=== PATIENT | male | born 1940 | race Caucasian/White ===

== ENCOUNTER → 2019-09-12 15:56 | Outpatient (CLI) | payer MEDICARE, BC, SELFPAY ==
[2019-09-12 18:10] LABS: AST(SGOT) 31 U/L (15-37); Alanine Aminotransfer ALT/SGPT 52 U/L (16-61); Albumin, Serum 3.8 g/dL (3.2-5.0); Alkaline Phosphatase 93 U/L (45-117); Bilirubin, Direct 0.18 mg/dL (0.00-0.30); CPK Total, Creatine Kinase 423 U/L (39-308); Ferritin 57 ng/mL (26-388); Globulin 3.7 g/dL (2.2-4.2); Magnesium 2.2 mg/dL (1.6-2.6); Protein, Total 7.5 g/dL (6.4-8.2)
== END ==
PROVIDERS: Family Medicine; Family Provider Family Medicine; PCP Family Medicine; Referring Provider Family Medicine; Visit Provider Family Medicine
DX: E78.5 Hyperlipidemia, unspecified (principal); R25.2 Cramp and spasm
CPT/HCPCS: 36415; 80076; 82550; 82728; 83735

== ENCOUNTER → 2019-09-27 08:27 | Outpatient (CLI) | payer MEDICARE, BC, SELFPAY ==
[2019-09-27 10:31] LABS: CPK Total, Creatine Kinase 311 U/L (39-308)
== END ==
PROVIDERS: Family Provider Family Medicine; PCP Family Medicine; Referring Provider Family Medicine; Visit Provider Family Medicine
DX: R74.8 Abnormal levels of other serum enzymes (principal)
CPT/HCPCS: 36415; 82550

== ENCOUNTER → 2019-11-13 09:52 | Outpatient (CLI) | payer MEDICARE, BC, SELFPAY ==
[2019-11-13 12:20] LABS: Absolute Lymphocyte Count 1.39 X10^3/uL (0.83-4.51); Absolute Neutrophil Count 4.5 X10^3/uL (2.0-7.7); Basophil# 0.03 X10^3/uL; Basophil% 0.5 % (0-1); Eosinophil# 0.06 X10^3/uL; Eosinophils% 0.9 % (0-5); Hematocrit 43.7 % (40-54); Hemoglobin 14.3 g/dL (13.0-16.5); Lymphocyte # 1.39 X10^3/ul (4.0); Lymphocyte % 21.5 % (19-41); Mean Corp Hgb Conc 32.7 g/dL (32-36); Mean Corpuscular Hgb 32.5 pg (27.0-32.0); Mean Corpuscular Volume 99.3 fL (80-94); Mean Platelet Vol. 9.4 fl (6.2-12.0); Monocyte# 0.49 X10^3/uL; Monocyte% 7.6 % (0-10); NRBC Flagged by Analyzer 0 % (0-5); Neutrophil # 4.49 X10^3/uL (2.7-7.7); Neutrophil % 69.2 % (47-70); Platelet Count 245 K/mm3 (150-450); RBC Distribution Width CV 12.9 % (11.6-14.6); RBC Distribution Width SD 47.3 fl (35.1-43.9); White Blood Count 6.5 K/mm3 (4.4-11.0)
[2019-11-13 12:39] LABS: ALB/GLOB Ratio 0.9 RATIO (0.9-2.4); AST(SGOT) 36 U/L (15-37); Alanine Aminotransfer ALT/SGPT 57 U/L (16-61); Albumin, Serum 3.7 g/dL (3.2-5.0); Alkaline Phosphatase 89 U/L (45-117); Anion Gap 6 (5-15); BUN 19 mg/dL (7-18); BUN/Creat Ratio 15.2 RATIO (10-20); Calcium,Total 9.2 mg/dL (8.5-10.1); Chloride 105 mmol/L (98-107); Cholesterol 248 mg/dL (200); Creatinine, Serum 1.25 mg/dL (0.70-1.30); EST Glomerular Filtration Rate 59 mL/min (>60); Est Glom Filt Rate - Afr Amer 72 mL/min (>60); Globulin 3.9 g/dL (2.2-4.2); Glucose 99 mg/dL (74-106); High Density Lipoprotein 44 mg/dL; Potassium 4.2 mmol/L (3.5-5.1); Protein, Total 7.6 g/dL (6.4-8.2); Sodium Level 138 mmol/L (136-145); T4 Free Direct 1.23 ng/dL (0.76-1.46); Thyroid Stim Hormone (TSH) 1.57 uIU/mL (0.358-3.74); Triglycerides 318 mg/dL; Uric Acid 6.5 mg/dL (3.5-7.2); Very Low Density Lipoprotein 64 mg/dL (5-40)
== END ==
PROVIDERS: Family Provider Family Medicine; PCP Family Medicine; Referring Provider Family Medicine; Visit Provider Family Medicine
DX: E78.5 Hyperlipidemia, unspecified (principal); E89.0 Postprocedural hypothyroidism; M10.9 Gout, unspecified; R07.9 Chest pain, unspecified
CPT/HCPCS: 36415; 80053; 80061; 84439; 84443; 84550; 85025

== ENCOUNTER → 2019-12-09 11:55 | Outpatient (CLI) | payer MEDICARE, BC, SELFPAY ==
[2019-12-09 14:29] LABS: Anion Gap 5 (5-15); BUN 18 mg/dL (7-18); BUN/Creat Ratio 15.5 RATIO (10-20); Calcium,Total 9.5 mg/dL (8.5-10.1); Chloride 105 mmol/L (98-107); Creatinine, Serum 1.16 mg/dL (0.70-1.30); EST Glomerular Filtration Rate 65 mL/min (>60); Est Glom Filt Rate - Afr Amer 78 mL/min (>60); Glucose 86 mg/dL (74-106); Potassium 3.9 mmol/L (3.5-5.1); Sodium Level 139 mmol/L (136-145)
== END ==
PROVIDERS: PCP Family Medicine; Referring Provider Family Medicine; Visit Provider Family Medicine
DX: R94.4 Abnormal results of kidney function studies (principal)
CPT/HCPCS: 36415; 80048

== ENCOUNTER → 2020-04-17 08:00 | Outpatient (CLI) | payer MEDICARE, BC, SELFPAY ==
[2020-04-17 10:08] LABS: Absolute Lymphocyte Count 1.42 X10^3/uL (0.83-4.51); Absolute Neutrophil Count 3.8 X10^3/uL (2.0-7.7); Basophil# 0.02 X10^3/uL; Basophil% 0.3 % (0-1); Eosinophil# 0.05 X10^3/uL; Eosinophils% 0.9 % (0-5); Lymphocyte # 1.42 X10^3/ul (4.0); Lymphocyte % 24.4 % (19-41); Mean Corp Hgb Conc 31.7 g/dL (32-36); Mean Corpuscular Hgb 32.3 pg (27.0-32.0); Mean Corpuscular Volume 101.7 fL (80-94); Mean Platelet Vol. 9.5 fl (6.2-12.0); Monocyte# 0.51 X10^3/uL; Monocyte% 8.8 % (0-10); NRBC Flagged by Analyzer 0 % (0-5); Neutrophil % 65.3 % (47-70); Platelet Count 184 K/mm3 (150-450); RBC Distribution Width CV 13.4 % (11.6-14.6); RBC Distribution Width SD 49.9 fl (35.1-43.9); Red Blood Count 4.03 M/mm3 (4.6-6.2); White Blood Count 5.8 K/mm3 (4.4-11.0)
[2020-04-17 10:42] LABS: AST(SGOT) 33 U/L (15-37); Alanine Aminotransfer ALT/SGPT 51 U/L (16-61); Albumin, Serum 3.7 g/dL (3.2-5.0); Alkaline Phosphatase 70 U/L (45-117); Anion Gap 7 (5-15); BUN 16 mg/dL (7-18); BUN/Creat Ratio 13.6 RATIO (10-20); Calcium,Total 9.1 mg/dL (8.5-10.1); Chloride 103 mmol/L (98-107); Cholesterol 163 mg/dL (200); Creatinine, Serum 1.18 mg/dL (0.70-1.30); EST Glomerular Filtration Rate 63 mL/min (>60); Est Glom Filt Rate - Afr Amer 77 mL/min (>60); Globulin 3.7 g/dL (2.2-4.2); Glucose 106 mg/dL (74-106); High Density Lipoprotein 43 mg/dL; Potassium 4.3 mmol/L (3.5-5.1); Protein, Total 7.4 g/dL (6.4-8.2); Sodium Level 140 mmol/L (136-145); T4 Free Direct 1.34 ng/dL (0.76-1.46); Triglycerides 143 mg/dL; Uric Acid 5.5 mg/dL (3.5-7.2); Very Low Density Lipoprotein 29 mg/dL (5-40)
[2020-04-21 04:58] LABS: Anti-Thyroglobulin AB < 1.0 IU/mL (0.0-0.9); Thyroglobulin, Serum Qt. < 0.1 ng/mL (1.4-29.2)
== END ==
PROVIDERS: PCP Family Medicine; Referring Provider Family Medicine; Visit Provider Family Medicine
DX: C73 Malignant neoplasm of thyroid gland (principal); E89.0 Postprocedural hypothyroidism; K21.9 Gastro-esophageal reflux disease without esophagitis; E78.5 Hyperlipidemia, unspecified; M10.9 Gout, unspecified
CPT/HCPCS: 80053; 80061; 84432; 84439; 84443; 84550; 85025; 86800

== ENCOUNTER → 2020-05-18 09:39 | Outpatient (CLI) | payer MEDICARE, BC, SELFPAY ==
--- NOTE | 2020-05-18 09:41 | NM_ITS ---
CLINICAL: 79-year-old male with history of early satiety. SEMI-SOLID PHASE 99m Tc SULFUR COLLOID GASTRIC EMPTYING STUDY COMPARISON: None available FINDINGS: The patient was administered 1.2 mCi of 99m Tc sulfur colloid mixed with oatmeal and consumed per os. Image acquisitions in the anterior-posterior projections for a total of 60 minutes. There is prompt visualization of the stomach. There is no gastroesophageal reflux identified. The T1/2 linear fit was calculated to be 30.27 minutes, (Normal: 12-56 minutes). NM/Gastric Emptying Study IMPRESSION: 1. NORMAL 99m Tc sulfur colloid semi-solid phase (oatmeal) gastric emptying imaging examination. A. There is normal and preserved semi-solid phase gastric emptying compared to normal controls. (John et al, J Nucl Med Tech 38: 186, 2010). Electronically Signed: Oscar Gallardo DO at 22:10 EDT Tel , Service support ,
== END ==
PROVIDERS: PCP Family Medicine; Referring Provider Family Medicine; Visit Provider Family Medicine
DX: R68.81 Early satiety (principal)
CPT/HCPCS: 78264; A9541

== ENCOUNTER → 2020-06-09 18:09 | Outpatient (CLI) | payer MEDICARE, BC, SELFPAY | PROVIDERS: PCP Family Medicine; Referring Provider Internal Medicine Gastroenterology; Visit Provider Internal Medicine Gastroenterology | DX: Z20.828 Contact with and (suspected) exposure to other viral communicable diseases (principal) | CPT/HCPCS: 87635; 94799; U0003 ==

== ENCOUNTER → 2020-08-12 09:50 | Outpatient (CLI) | payer MEDICARE, BC, SELFPAY ==
[2020-08-12 12:54] LABS: Vitamin B12 419 pg/mL (211-911)
[2020-08-12 13:03] LABS: AST(SGOT) 38 U/L (15-37); Alanine Aminotransfer ALT/SGPT 57 U/L (16-61); Albumin, Serum 3.6 g/dL (3.2-5.0); Alkaline Phosphatase 88 U/L (45-117); Anion Gap 7 (5-15); BUN 14 mg/dL (7-18); BUN/Creat Ratio 13.2 RATIO (10-20); Calcium,Total 9.2 mg/dL (8.5-10.1); Chloride 105 mmol/L (98-107); Cholesterol 139 mg/dL (200); Creatinine, Serum 1.06 mg/dL (0.70-1.30); EST Glomerular Filtration Rate 72 mL/min (>60); Est Glom Filt Rate - Afr Amer 87 mL/min (>60); Globulin 3.7 g/dL (2.2-4.2); Glucose 109 mg/dL (74-106); High Density Lipoprotein 46 mg/dL; Potassium 4.1 mmol/L (3.5-5.1); Protein, Total 7.3 g/dL (6.4-8.2); Sodium Level 139 mmol/L (136-145); Thyroid Stim Hormone (TSH) 3.55 uIU/mL (0.358-3.74); Triglycerides 219 mg/dL; Uric Acid 5.6 mg/dL (3.5-7.2); Very Low Density Lipoprotein 44 mg/dL (5-40)
[2020-08-18 18:24] LABS: Vitamin B1, Thiamine 139.8 nmol/L (66.5-200.0)
== END ==
PROVIDERS: PCP Family Medicine; Referring Provider Family Medicine; Visit Provider Family Medicine
DX: E78.5 Hyperlipidemia, unspecified (principal); E89.0 Postprocedural hypothyroidism; M10.9 Gout, unspecified; G62.9 Polyneuropathy, unspecified
CPT/HCPCS: 36415; 80053; 80061; 82607; 84425; 84439; 84443; 84550

== ENCOUNTER → 2021-02-01 07:07 | Outpatient (CLI) | payer MEDICARE, BC, SELFPAY ==
[2021-02-01 09:47] LABS: Absolute Lymphocyte Count 1.28 X10^3/uL (0.83-4.51); Absolute Neutrophil Count 3.6 X10^3/uL (2.0-7.7); Basophil# 0.02 X10^3/uL; Basophil% 0.4 % (0-1); Eosinophil# 0.07 X10^3/uL; Eosinophils% 1.3 % (0-5); Hematocrit 41.8 % (40-54); Hemoglobin 13.5 g/dL (13.0-16.5); Lymphocyte # 1.28 X10^3/ul (4.0); Lymphocyte % 23.5 % (19-41); Mean Corp Hgb Conc 32.3 g/dL (32-36); Mean Corpuscular Hgb 32.3 pg (27.0-32.0); Mean Platelet Vol. 9.4 fl (6.2-12.0); Monocyte# 0.43 X10^3/uL; Monocyte% 7.9 % (0-10); NRBC Flagged by Analyzer 0 % (0-5); Neutrophil # 3.62 X10^3/uL (2.7-7.7); Neutrophil % 66.5 % (47-70); Platelet Count 186 K/mm3 (150-450); RBC Distribution Width CV 13.2 % (11.6-14.6); RBC Distribution Width SD 48.4 fl (35.1-43.9); Red Blood Count 4.18 M/mm3 (4.6-6.2); White Blood Count 5.4 K/mm3 (4.4-11.0)
[2021-02-01 10:34] LABS: ALB/GLOB Ratio 1.3 RATIO (0.9-2.4); AST(SGOT) 45 U/L (15-37); Alanine Aminotransfer ALT/SGPT 73 U/L (16-61); Albumin, Serum 3.9 g/dL (3.2-5.0); Alkaline Phosphatase 67 U/L (45-117); Anion Gap 6 (5-15); BUN 16 mg/dL (7-18); BUN/Creat Ratio 15.4 RATIO (10-20); Calcium,Total 8.8 mg/dL (8.5-10.1); Chloride 104 mmol/L (98-107); Cholesterol 156 mg/dL (200); Creatinine, Serum 1.04 mg/dL (0.70-1.30); EST Glomerular Filtration Rate 73 mL/min (>60); Est Glom Filt Rate - Afr Amer 88 mL/min (>60); Globulin 3.1 g/dL (2.2-4.2); Glucose 94 mg/dL (74-106); High Density Lipoprotein 49 mg/dL; Potassium 4.2 mmol/L (3.5-5.1); Sodium Level 142 mmol/L (136-145); T4 Free Direct 1.13 ng/dL (0.76-1.46); Thyroid Stim Hormone (TSH) 2.88 uIU/mL (0.358-3.74); Triglycerides 156 mg/dL; Uric Acid 5.5 mg/dL (3.5-7.2); Very Low Density Lipoprotein 31 mg/dL (5-40)
== END ==
PROVIDERS: PCP Family Medicine; Referring Provider Family Medicine; Visit Provider Family Medicine
DX: E89.0 Postprocedural hypothyroidism (principal); E78.5 Hyperlipidemia, unspecified; M10.9 Gout, unspecified
CPT/HCPCS: 36415; 80053; 80061; 84439; 84443; 84550; 85025

== ENCOUNTER → 2021-02-03 09:58 | Outpatient (CLI) | payer MEDICARE, BC, SELFPAY ==
[2021-02-03 13:15] LABS: Hepatitis B Surface Antibody Non-Reactive; Hepatitis B Surface Antigen Non-Reactive (Nonreactive); Hepatitis C Antibody Non-Reactive (Nonreactive)
== END ==
PROVIDERS: PCP Family Medicine; Referring Provider Family Medicine; Visit Provider Family Medicine
DX: R79.89 Other specified abnormal findings of blood chemistry (principal)
CPT/HCPCS: 36415; 86706; 86803; 87340

== ENCOUNTER → 2021-03-04 08:46 | Outpatient (CLI) | payer MEDICARE, BC, SELFPAY ==
[2021-03-10 03:06] LABS: Alternaria alternata <0.10 kU/L (Class 0); Aspergillus fumigatus <0.10 kU/L (Class 0); Bahia Grass <0.10 kU/L (Class 0); Bermuda Grass <0.10 kU/L (Class 0); Bluegrass, Kentucky <0.10 kU/L (Class 0); Cat Hair/Dander, Standard <0.10 kU/L (Class 0); Cedar, Mountain <0.10 kU/L (Class 0); Cladosporium herbarum <0.10 kU/L (Class 0); Cockroach, American <0.10 kU/L (Class 0); D farinae Mite <0.10 kU/L (Class 0); D pteronyssinus <0.10 kU/L (Class 0); Dog Epithelia <0.10 kU/L (Class 0); Elm, American White <0.10 kU/L (Class 0); Hazelnut Tree <0.10 kU/L (Class 0); Hickory, White <0.10 kU/L (Class 0); Johnson Grass <0.10 kU/L (Class 0); Maple/Box Elder <0.10 kU/L (Class 0); Mucor racemosus <0.10 kU/L (Class 0); Mugwort <0.10 kU/L (Class 0); Mulberry, White <0.10 kU/L (Class 0); Oak, White <0.10 kU/L (Class 0); Penicillium chrysogen <0.10 kU/L (Class 0); Pigweed, Rough <0.10 kU/L (Class 0); Plantain, English <0.10 kU/L (Class 0); Ragweed, Short/Common <0.10 kU/L (Class 0); Sheep Sorrel(Dock) <0.10 kU/L (Class 0); Stemphylium herbarum <0.10 kU/L (Class 0); Sweet Gum <0.10 kU/L (Class 0); Sycamore, American <0.10 kU/L (Class 0)
[2021-03-10 12:48] LABS: Nettle <0.10 kU/L (Class 0)
== END ==
PROVIDERS: PCP Family Medicine; Referring Provider Family Medicine; Visit Provider Family Medicine
DX: J30.9 Allergic rhinitis, unspecified (principal)
CPT/HCPCS: 36415; 86003

== ENCOUNTER → 2021-03-10 08:42 | Outpatient (CLI) | payer MEDICARE, BC, SELFPAY ==
--- NOTE | 2021-03-10 08:48 | RAD_ITS ---
PROCEDURE: Sniff test. DATE OF EXAMINATION: 03/10/2021. INDICATION: Male, 80 years old. Shortness of breath. FLUOROSCOPY TIME (if supplied): (23 seconds) minutes/seconds. 2 images were obtained. RAD/Chest Sniff Test Fluoro Only IMPRESSION: Normal movement of the right and left hemidiaphragms. Electronically Signed: Mumtaz Julian MD at 10:00 EDT , Service support ,
--- NOTE | 2021-03-10 08:48 | RAD_ITS ---
STUDY: X-RAY CHEST REASON FOR EXAM: Male, 80 years old. DYSPNEA TECHNIQUE: PA and lateral views of the chest. COMPARISON: None. FINDINGS: Mild increased linear markings at the lung bases suggestive of a bibasilar linear scarring. Hyperinflation. There is no demonstrated pleural abnormality. Normal size heart. Normal mediastinum and ghazal. Normal visualized pulmonary arteries. There is atherosclerotic calcification of the aortic arch with tortuosity. There are degenerative changes of the visualized thoracic spine. Metallic anchors are seen overlying the left humeral head suggestive of prior rotator cuff surgery. Small hiatal hernia. Patient is status post cholecystectomy. RAD/Chest PA and Lateral IMPRESSION: Hyperinflation. Mild increased signal markings at the lung bases suggestive of linear scarring. Electronically Signed: Mumtaz Julian MD at 9:16 EDT , Service support ,
== END ==
PROVIDERS: PCP Family Medicine; Referring Provider Internal Medicine Pulmonary Disease; Visit Provider Internal Medicine Pulmonary Disease
DX: R06.00 Dyspnea, unspecified (principal)
CPT/HCPCS: 71046; 76000

== ENCOUNTER → 2021-05-04 09:42 | Outpatient (CLI) | payer MEDICARE, BC, SELFPAY ==
[2021-05-04 12:06] LABS: Absolute Lymphocyte Count 1.12 X10^3/uL (0.83-4.51); Absolute Neutrophil Count 3.2 X10^3/uL (2.0-7.7); Basophil# 0.01 X10^3/uL; Basophil% 0.2 % (0-1); Eosinophil# 0.12 X10^3/uL; Eosinophils% 2.5 % (0-5); Hematocrit 38.7 % (40-54); Hemoglobin 12.5 g/dL (13.0-16.5); Lymphocyte # 1.12 X10^3/ul (0.83-4.51); Lymphocyte % 23.3 % (19-41); Mean Corp Hgb Conc 32.3 g/dL (32-36); Mean Corpuscular Hgb 31.5 pg (27.0-32.0); Mean Corpuscular Volume 97.5 fL (80-94); Mean Platelet Vol. 9.9 fl (6.2-12.0); Monocyte# 0.35 X10^3/uL; Monocyte% 7.3 % (0-10); NRBC Flagged by Analyzer 0 % (0-5); Neutrophil # 3.19 X10^3/uL (2.7-7.7); Neutrophil % 66.3 % (47-70); Platelet Count 209 K/mm3 (150-450); RBC Distribution Width CV 13.5 % (11.6-14.6); RBC Distribution Width SD 48.2 fl (35.1-43.9); Red Blood Count 3.97 M/mm3 (4.6-6.2); White Blood Count 4.8 K/mm3 (4.4-11.0)
[2021-05-04 12:25] LABS: AST(SGOT) 64 U/L (15-37); Alanine Aminotransfer ALT/SGPT 70 U/L (16-61); Albumin, Serum 3.5 g/dL (3.2-5.0); Alkaline Phosphatase 70 U/L (45-117); Anion Gap 8 (5-15); BUN 22 mg/dL (7-18); BUN/Creat Ratio 23.1 RATIO (10-20); Chloride 108 mmol/L (98-107); Cholesterol 126 mg/dL (200); Creatinine, Serum 0.95 mg/dL (0.70-1.30); EST Glomerular Filtration Rate 81 mL/min (>60); Est Glom Filt Rate - Afr Amer 98 mL/min (>60); Globulin 3.6 g/dL (2.2-4.2); Glucose 126 mg/dL (74-106); High Density Lipoprotein 40 mg/dL; Potassium 3.7 mmol/L (3.5-5.1); Protein, Total 7.1 g/dL (6.4-8.2); Sodium Level 142 mmol/L (136-145); T4 Free Direct 1.21 ng/dL (0.76-1.46); Thyroid Stim Hormone (TSH) 2.08 uIU/mL (0.358-3.74); Triglycerides 117 mg/dL; Uric Acid 5.9 mg/dL (3.5-7.2); Very Low Density Lipoprotein 23 mg/dL (5-40)
[2021-05-04 14:23] LABS: Ferritin 87 ng/mL (26-388); Iron 80 ug/dL (65-175); Iron Binding Capacity,Total 291 ug/dL (250-450); PERCENT IRON SATURATION 27.5 % (15.0-55.0)
[2021-05-04 14:40] LABS: Vitamin B12 396 pg/mL (211-911)
== END ==
PROVIDERS: PCP Family Medicine
DX: C73 Malignant neoplasm of thyroid gland (principal); E89.0 Postprocedural hypothyroidism; D64.9 Anemia, unspecified; E78.5 Hyperlipidemia, unspecified
CPT/HCPCS: 36415; 80053; 80061; 82607; 82728; 83540; 83550; 84439; 84443; 84550; 85025

== ENCOUNTER 2021-05-29 15:08 | Emergency (ER) | payer MEDICARE, BC, SELFPAY ==
[2021-05-29 15:08] VITALS: BP 137/69; PULSE 87; RESP 16; TEMP 36.6; O2SAT 95; BMI 28.5
--- NOTE | 2021-05-29 15:24 | CT_ITS ---
STUDY: CT BRAIN WITHOUT CONTRAST REASON FOR EXAM: Male, 81 years old. Fall this morning, facial pain RADIATION DOSAGE (If Supplied By Facility): CTDIvol = ( 44.99 ) mGy, DLP = ( 846.73 ) mGycm TECHNIQUE: Transaxial CT imaging of the brain was performed without administration of intravenous contrast material. Individualized dose optimization techniques were used for this CT. COMPARISON: No relevant priors. FINDINGS: Normal soft tissue structures. Normal calvarium. Normal size ventricles and extra-axial spaces for the patient''s age. Normal white matter tracts of the cerebral hemispheres. Normal basal ganglia and thalami. Normal brainstem. Normal cerebellum. There is no intracranial hemorrhage. There are no findings of an acute ischemic infarction. There is mucoperiosteal inflammatory disease of the frontal sinuses consistent with severe chronic sinusitis. Operative changes of the anterior frontal sinuses. Operative changes of the bilateral orbital globes. CT/Brain/Head without Contrast IMPRESSION: 1. No acute intracranial hemorrhage or mass effect. Electronically Signed: Joel Lobo MD ([place]) at 15:58 EDT , Service support ,
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
--- NOTE | 2021-05-29 15:47 | RAD_ITS ---
STUDY: X-RAY - LEFT SHOULDER REASON FOR EXAM: Male, 81 years old. injury TECHNIQUE: 4 view(s) of the shoulder. COMPARISON: None. FINDINGS: There is mild degenerative arthrosis of the glenohumeral articulation. Normal acromioclavicular joint. Normal acromion. Normal humeral head and visualized proximal humerus. Status post rotator cuff repair with surgical anchors in the humeral head. The soft tissue structures are unremarkable. Normal visualized pulmonary apex. RAD/Shoulder min 2 Views IMPRESSION: No acute fracture or dislocation. Electronically Signed: Oscar Baumann MD at 16:43 EDT Tel , Service support ,
--- NOTE | 2021-05-29 15:47 | RAD_ITS ---
STUDY: X-RAY - PELVIS AND LEFT HIP REASON FOR EXAM: Male, 81 years old. hip pain TECHNIQUE: 3 views of the pelvis and hip. COMPARISON: None. FINDINGS: There is a non-specific bowel gas pattern. Normal visualized soft tissue structures. Excreted contrast in the urinary bladder Normal bilateral iliac wings, sacroiliac joints and visualized sacrum. Normal bilateral superior and inferior pubic rami. Normal pubic symphysis. Normal bilateral ischial tuberosities. Normal visualized femoral head. Normal acetabulum. Normal hip joint. RAD/HIP, UNI W/ Pelvis 2-3 Views IMPRESSION: No demonstrated fracture malalignment. Electronically Signed: Joel Lobo MD ([place]) at 16:23 EDT , Service support ,
--- NOTE | 2021-05-29 15:47 | RAD_ITS ---
EXAM: XR LEFT RIBS AND AP CHEST, 3 OR MORE VIEWS CLINICAL INDICATION: injury this morning, left rib pain TECHNIQUE: Frontal and oblique views of the left ribs and frontal view of the chest. This report was created using [employer] report DailyStrength technology. COMPARISON: None. FINDINGS: LUNGS AND PLEURAL SPACES: Unremarkable. No consolidation or edema. No pneumothorax. No effusion. HEART: Unremarkable. Cardiac silhouette not enlarged. Atherosclerosis of the thoracic arch. MEDIASTINUM: Central airways and mediastinal contour are unremarkable. BONES/JOINTS: Operative changes of the left humeral head. No evidence of displaced rib fractures. RAD/Ribs Uni Min 3V w/PA Chest IMPRESSION: Negative chest and left ribs series. Electronically Signed: Joel Lobo MD ([place]) at 16:24 EDT , Service support ,
== END 2021-05-29 17:01 | disposition home or self-care (01) ==
PROVIDERS: Emergency Provider Emergency Medicine; PCP Family Medicine
DX: S00.83XA Contusion of other part of head, initial encounter (principal); S00.33XA Contusion of nose, initial encounter; S40.012A Contusion of left shoulder, initial encounter; S80.212A Abrasion, left knee, initial encounter; S80.211A Abrasion, right knee, initial encounter; S60.519A Abrasion of unspecified hand, initial encounter; W19.XXXA Unspecified fall, initial encounter; Y93.9 Activity, unspecified; Y92.9 Unspecified place or not applicable; Y99.9 Unspecified external cause status
CPT/HCPCS: 70450; 71101; 73030; 73502; 99282; A4216

== ENCOUNTER → 2021-06-10 08:14 | Outpatient (CLI) | payer MEDICARE, BC, SELFPAY ==
[2021-05-29 15:08] VITALS: BMI 28.5
--- NOTE | 2021-06-10 08:16 | RAD_ITS ---
STUDY: X-RAY - ESOPHAGUS (BARIUM SWALLOW) WITH FLUOROSCOPY REASON FOR EXAM: Male, 81 years old. DYSPHAGIA TECHNIQUE: 21 view(s) of the esophagus were obtained following swallowing of barium. FLUOROSCOPY TIME (if supplied): (36 seconds) minutes/seconds COMPARISON: None. FINDINGS: There is no demonstrated esophageal foreign body. Tertiary contractions of the mid and distal esophagus. Normal gastroesophageal junction, without a demonstrated hiatal hernia. The patient ingested a 12 mm tablet of barium. The tablet is trapped at the gastroesophageal junction. Normal visualized aortic arch and descending thoracic aorta. Normal visualized pulmonary parenchyma. There are diffuse degenerative changes of the visualized thoracic spine. RAD/Esophagus Single Contrast IMPRESSION: Tertiary contractions of the mid and distal portions of the esophagus. The patient ingested a 12 mm tablet of barium. The tablet is trapped at the gastroesophageal junction. Electronically Signed: Mumtaz Julian MD at 9:30 EDT , Service support ,
== END ==
PROVIDERS: PCP Family Medicine; Referring Provider Family Medicine; Visit Provider Family Medicine
DX: R13.10 Dysphagia, unspecified (principal)
CPT/HCPCS: 74220

== ENCOUNTER → 2021-07-14 14:04 | Outpatient (CLI) | payer MEDICARE, BC, SELFPAY ==
[2021-07-14 15:04] LABS: Absolute Lymphocyte Count 1.54 X10^3/uL (0.83-4.51); Absolute Neutrophil Count 4.9 X10^3/uL (2.0-7.7); Basophil# 0.02 X10^3/uL; Basophil% 0.3 % (0-1); Eosinophil# 0.08 X10^3/uL; Eosinophils% 1.1 % (0-5); Hematocrit 39.5 % (40-54); Hemoglobin 12.9 g/dL (13.0-16.5); Lymphocyte # 1.54 X10^3/ul (0.83-4.51); Lymphocyte % 21.6 % (19-41); Mean Corp Hgb Conc 32.7 g/dL (32-36); Mean Corpuscular Hgb 32.1 pg (27.0-32.0); Mean Corpuscular Volume 98.3 fL (80-94); Mean Platelet Vol. 9.8 fl (6.2-12.0); Monocyte# 0.61 X10^3/uL; Monocyte% 8.6 % (0-10); NRBC Flagged by Analyzer 0 % (0-5); Neutrophil # 4.85 X10^3/uL (2.7-7.7); Platelet Count 205 K/mm3 (150-450); RBC Distribution Width CV 13.4 % (11.6-14.6); RBC Distribution Width SD 49.1 fl (35.1-43.9); Red Blood Count 4.02 M/mm3 (4.6-6.2); White Blood Count 7.1 K/mm3 (4.4-11.0)
[2021-07-14 15:44] LABS: ALB/GLOB Ratio 0.8 RATIO (0.9-2.4); AST(SGOT) 27 U/L (15-37); Alanine Aminotransfer ALT/SGPT 40 U/L (16-61); Albumin, Serum 3.4 g/dL (3.2-5.0); Alkaline Phosphatase 81 U/L (45-117); Anion Gap 6 (5-15); BUN 13 mg/dL (7-18); BUN/Creat Ratio 13.1 RATIO (10-20); Calcium,Total 9.6 mg/dL (8.5-10.1); Chloride 105 mmol/L (98-107); Cholesterol 129 mg/dL (200); Creatinine, Serum 0.99 mg/dL (0.70-1.30); EST Glomerular Filtration Rate 77 mL/min (>60); Est Glom Filt Rate - Afr Amer 93 mL/min (>60); Globulin 4.1 g/dL (2.2-4.2); Glucose 118 mg/dL (74-106); High Density Lipoprotein 39 mg/dL; Potassium 3.9 mmol/L (3.5-5.1); Protein, Total 7.5 g/dL (6.4-8.2); Sodium Level 139 mmol/L (136-145); Triglycerides 181 mg/dL; Uric Acid 5.1 mg/dL (3.5-7.2); Very Low Density Lipoprotein 36 mg/dL (5-40)
[2021-07-14 16:05] LABS: Vitamin D,25 Hydroxy 51.7 ng/mL
== END ==
PROVIDERS: PCP Family Medicine; Referring Provider Family Medicine; Visit Provider Family Medicine
DX: R35.0 Frequency of micturition (principal); R73.09 Other abnormal glucose; E78.5 Hyperlipidemia, unspecified; M10.9 Gout, unspecified; E55.9 Vitamin D deficiency, unspecified
CPT/HCPCS: 36415; 80053; 80061; 82306; 83036; 84550; 85025; 87086; 87088

== ENCOUNTER → 2021-07-22 11:29 | Outpatient (CLI) | payer MEDICARE, BC, SELFPAY ==
--- NOTE | 2021-07-22 11:31 | US_ITS ---
STUDY: ULTRASOUND - URINARY BLADDER REASON FOR EXAM: Male, 81 years old. Pelvic pain and fullness TECHNIQUE: Ultrasound evaluation of the urinary bladder was performed with real-time and static york-scale imaging. COMPARISON: None. FINDINGS: There is no right UVJ calculus. There is a visualized right ureteral jet. The distended volume of the urinary bladder is 105 ml. The empty volume of the urinary bladder is 24 ml. The bladder wall is within normal limits. The bladder wall measures 3.7. There is no demonstrated bladder wall mass lesion. There are no demonstrated bladder calculi. 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
== END ==
PROVIDERS: PCP Family Medicine; Referring Provider Family Medicine; Visit Provider Family Medicine
DX: R33.9 Retention of urine, unspecified (principal)
CPT/HCPCS: 51798

== ENCOUNTER → 2021-08-26 09:45 | Outpatient (CLI) | payer MEDICARE, BC, SELFPAY ==
--- NOTE | 2021-08-26 09:48 | ECHOD_ITS ---
Version 2 Reason For Study: PHTN Procedure This was a 2D Doppler, Color Flow transthoracic echocardiogram. Exam performed in department. Left Ventricle Normal LV size. Left ventricular systolic function is normal. The estimated ejection fraction is 60 %. Stage 1 diastolic dysfunction. No regional wall motion abnormalities noted. Right Ventricle Normal RV size. Normal systolic function. Atria Normal left atrium. Normal right atrium. Mitral Valve Normal mitral valve. Tricuspid Valve Normal tricuspid valve. Mild tricuspid valve insufficiency. Pulmonary artery systolic pressure is 25 mmHg. Normal pulmonary artery pressure. Aortic Valve Normal aortic valve. Trisinus/trileaflet aortic valve. Pulmonic Valve Normal pulmonic valve. Great Vessels Normal aortic root. The pulmonary artery is normal size. Normal inferior vena cava. Pericardium/Pleural No pericardial effusion. MMode/2D Measurements & Calculations LVIDd: 4.7 cm IVSd: 1.0 cm Ao root diam: 3.4 cm LVIDs: 2.6 cm LVPWd: 1.1 cm RVDd: 3.6 cm FS: 45.1 % LAV(MOD-bp): 54.4 ml LA A4 area: 18.2 cm2 LA dimension(2D): 3.8 cm LAV(MOD-bp) Indexed: 24.5 ml/m2 LAV(MOD-sp2): 55.9 ml LAV(MOD-sp4): 49.0 ml RA A4 area: 17.2 cm2 Time Measurements MV dec time: 0.25 sec Doppler Measurements & Calculations MV E max ravinder: 84.9 cm/sec Lat Peak E' Ravinder: 7.6 cm/sec Med Peak E' Ravinder: 8.6 cm/sec MV A max ravinder: 98.6 cm/sec E/E' lat: 11.2 E/E' med: 9.9 MV E/A: 0.86 Ao V2 max: 155.1 cm/sec LV V1 max: 135.6 cm/sec PA V2 max: 93.9 cm/sec Ao max P.6 mmHg LV V1 max P.4 mmHg TR max ravinder: 232.0 cm/sec TR max P.5 mmHg ECHO/Echo Complete Interpretation Summary Normal LV size. Left ventricular systolic function is normal. The estimated ejection fraction is 60 %. Stage 1 diastolic dysfunction. Pulmonary artery systolic pressure is 25 mmHg. Normal pulmonary artery pressure. Ordering Physician: Marcellus Mike Referring Physician: Chriss Knutson Performed By: Ayana Salazar, [place], RVT
== END ==
PROVIDERS: PCP Family Medicine; Referring Provider Internal Medicine Pulmonary Disease; Visit Provider Internal Medicine Pulmonary Disease
DX: I27.20 Pulmonary hypertension, unspecified (principal)
CPT/HCPCS: 93306

== ENCOUNTER 2021-12-01 12:08 | Outpatient (CLI) | payer MEDICARE, BC, SELFPAY ==
[2021-12-01 16:29] LABS: Vitamin B12 395 pg/mL (211-911)
[2021-12-15 18:08] LABS: VITAMIN B6 15.6 ug/L (5.3-46.7)
== END 2021-12-01 23:59 | disposition short-term general hospital (02) ==
LOC: MFPLAB 12:13
PROVIDERS: PCP Family Medicine; Referring Provider Family Medicine; Visit Provider Family Medicine
DX: G62.9 Polyneuropathy, unspecified (principal)
CPT/HCPCS: 36415; 82607; 84207; 84425

== ENCOUNTER 2022-02-15 08:28 | Outpatient (CLI) | payer MEDICARE, BC, SELFPAY ==
[2022-02-15 09:56] LABS: Absolute Lymphocyte Count 1.49 X10^3/uL (0.83-4.51); Absolute Neutrophil Count 3.9 X10^3/uL (2.0-7.7); Basophil# 0.02 X10^3/uL; Basophil% 0.3 % (0-1); Eosinophils% 1.7 % (0-5); Hematocrit 40.4 % (40-54); Hemoglobin 13.6 g/dL (13.0-16.5); Lymphocyte # 1.49 X10^3/ul (0.83-4.51); Mean Corp Hgb Conc 33.7 g/dL (32-36); Mean Corpuscular Hgb 32.5 pg (27.0-32.0); Mean Corpuscular Volume 96.7 fL (80-94); Mean Platelet Vol. 9.1 fl (6.2-12.0); Monocyte# 0.48 X10^3/uL; Monocyte% 8.1 % (0-10); NRBC Flagged by Analyzer 0 % (0-5); Neutrophil # 3.85 X10^3/uL (2.7-7.7); Neutrophil % 64.6 % (47-70); Platelet Count 188 K/mm3 (150-450); RBC Distribution Width CV 13.4 % (11.6-14.6); RBC Distribution Width SD 48.1 fl (35.1-43.9); Red Blood Count 4.18 M/mm3 (4.6-6.2)
[2022-02-15 10:10] LABS: Vitamin D,25 Hydroxy 46.3 ng/mL
[2022-02-15 10:20] LABS: ALB/GLOB Ratio 1.1 RATIO (0.9-2.4); AST(SGOT) 44 U/L (15-37); Alanine Aminotransfer ALT/SGPT 64 U/L (16-61); Albumin, Serum 3.7 g/dL (3.2-5.0); Alkaline Phosphatase 64 U/L (45-117); Anion Gap 7 (5-15); BUN 18 mg/dL (7-18); BUN/Creat Ratio 19.2 RATIO (10-20); Chloride 104 mmol/L (98-107); Cholesterol 134 mg/dL (200); Creatinine, Serum 0.94 mg/dL (0.70-1.30); EST Glomerular Filtration Rate 82 mL/min (>60); Est Glom Filt Rate - Afr Amer 99 mL/min (>60); Globulin 3.5 g/dL (2.2-4.2); Glucose 103 mg/dL (74-106); High Density Lipoprotein 45 mg/dL; Potassium 4.1 mmol/L (3.5-5.1); Protein, Total 7.2 g/dL (6.4-8.2); Sodium Level 140 mmol/L (136-145); T4 Free Direct 1.11 ng/dL (0.76-1.46); Thyroid Stim Hormone (TSH) 5.28 uIU/mL (0.358-3.74); Triglycerides 127 mg/dL; Uric Acid 5.3 mg/dL (3.5-7.2); Very Low Density Lipoprotein 25 mg/dL (5-40)
== END 2022-02-15 23:59 | disposition home or self-care (01) ==
LOC: MTLAB 08:29
PROVIDERS: PCP Family Medicine; Referring Provider Family Medicine; Visit Provider Family Medicine
DX: E78.5 Hyperlipidemia, unspecified (principal); R73.09 Other abnormal glucose; E89.0 Postprocedural hypothyroidism; M10.9 Gout, unspecified; E55.9 Vitamin D deficiency, unspecified
CPT/HCPCS: 36415; 80053; 80061; 82306; 83036; 84439; 84443; 84550; 85025

== ENCOUNTER → 2022-06-13 | Outpatient (CLI) | payer MEDICARE, BC, SELFPAY ==
[2022-06-13 09:57] LABS: Absolute Lymphocyte Count 1.17 X10^3/uL (0.83-4.51); Basophil# 0.01 X10^3/uL; Basophil% 0.2 % (0-1); Eosinophil# 0.08 X10^3/uL; Eosinophils% 1.7 % (0-5); Hemoglobin 13.1 g/dL (13.0-16.5); Lymphocyte # 1.17 X10^3/ul (0.83-4.51); Lymphocyte % 25.2 % (19-41); Mean Corp Hgb Conc 32.8 g/dL (32-36); Mean Corpuscular Hgb 32.4 pg (27.0-32.0); Mean Platelet Vol. 9.6 fl (6.2-12.0); Monocyte# 0.37 X10^3/uL; NRBC Flagged by Analyzer 0 % (0-5); Neutrophil # 3.01 X10^3/uL (2.7-7.7); Neutrophil % 64.7 % (47-70); Platelet Count 151 K/mm3 (150-450); RBC Distribution Width CV 13.7 % (11.6-14.6); RBC Distribution Width SD 50.2 fl (35.1-43.9); Red Blood Count 4.04 M/mm3 (4.6-6.2); White Blood Count 4.7 K/mm3 (4.4-11.0)
[2022-06-13 10:13] LABS: Vitamin D,25 Hydroxy 54.7 ng/mL
[2022-06-13 10:18] LABS: Hemoglobin A1c 5.9 % (3.8-5.6)
[2022-06-13 10:20] LABS: AST(SGOT) 32 U/L (15-37); Alanine Aminotransfer ALT/SGPT 52 U/L (16-61); Albumin, Serum 3.4 g/dL (3.2-5.0); Alkaline Phosphatase 64 U/L (45-117); Anion Gap 7 (5-15); BUN 14 mg/dL (7-18); BUN/Creat Ratio 14.3 RATIO (10-20); Calcium,Total 8.7 mg/dL (8.5-10.1); Chloride 107 mmol/L (98-107); Cholesterol 129 mg/dL (200); Creatinine, Serum 0.98 mg/dL (0.70-1.30); EST Glomerular Filtration Rate 78 mL/min (>60); Est Glom Filt Rate - Afr Amer 95 mL/min (>60); Globulin 3.4 g/dL (2.2-4.2); Glucose 101 mg/dL (74-106); High Density Lipoprotein 45 mg/dL; Potassium 3.8 mmol/L (3.5-5.1); Protein, Total 6.8 g/dL (6.4-8.2); Sodium Level 142 mmol/L (136-145); T4 Free Direct 1.35 ng/dL (0.76-1.46); Thyroid Stim Hormone (TSH) 2.15 uIU/mL (0.358-3.74); Triglycerides 109 mg/dL; Very Low Density Lipoprotein 22 mg/dL (5-40)
== END | disposition home or self-care (01) ==
PROVIDERS: PCP Family Medicine
DX: E89.0 Postprocedural hypothyroidism (principal); E78.5 Hyperlipidemia, unspecified; E55.9 Vitamin D deficiency, unspecified; R73.02 Impaired glucose tolerance (oral)
CPT/HCPCS: 36415; 80053; 80061; 82306; 83036; 84439; 84443; 85025

== ENCOUNTER → 2022-07-07 | Outpatient (CLI) | payer MEDICARE, BC, SELFPAY ==
[2022-07-07 10:07] LABS: Erythrocyte Sedimentation Rate 22 mm/hr (0-20)
[2022-07-07 10:16] LABS: Vitamin B12 344 pg/mL (211-911)
[2022-07-07 10:39] LABS: CPK Total, Creatine Kinase 165 U/L (39-308)
[2022-07-08 13:07] LABS: ANTINUCLEAR ANTIBODIES DIRECT Positive (Negative); Anti-Centromere B Ab <0.2 AI (0.0-0.9); Anti-Chromatin <0.2 AI (0.0-0.9); Anti-Jo <0.2 AI (0.0-0.9); Anti-Scleroderma-70 AB <0.2 AI (0.0-0.9); RNP Ab <0.2 AI (0.0-0.9); SJOGREN'S Anti-SS-A test < 0.2 AI (0.0-0.9); SJOGREN'S Anti-SS-B test < 0.2 AI (0.0-0.9); Smith Ab <0.2 AI (0.0-0.9)
[2022-07-10 16:36] LABS: Anti-dsDNA Ab 16 IU/mL (0-9)
[2022-07-11 07:07] LABS: Aldolase 7.6 U/L (3.3-10.3); Free Kappa Light Chains 22.6 mg/L (3.3-19.4); Free Lambda Light Chains 16.9 mg/L (5.7-26.3); Vitamin B1, Thiamine 167.8 nmol/L (66.5-200.0)
[2022-07-12 16:34] LABS: Myoglobin, Serum 168 ng/mL (28-72)
== END | disposition home or self-care (01) ==
LOC: MTLAB 07:06
PROVIDERS: PCP Family Medicine; Referring Provider Psychiatry & Neurology Neurology; Visit Provider Psychiatry & Neurology Neurology
DX: G62.9 Polyneuropathy, unspecified (principal); R53.1 Weakness
CPT/HCPCS: 36415; 82085; 82550; 82607; 82746; 83874; 83883; 84425; 85652; 86038; 86225; 86235

== ENCOUNTER → 2022-07-12 | Outpatient (CLI) | payer MEDICARE, BC, SELFPAY ==
--- NOTE | 2022-07-12 17:10 | MRI_ITS ---
EXAM: MR LUMBAR SPINE WITHOUT INTRAVENOUS CONTRAST CLINICAL INDICATION: Low back pain, lower extremity weakness, gait d/o TECHNIQUE: Multiplanar and multisequence MR images of the lumbar spine without intravenous contrast. This report was created using [employer] report [employer]ayRides technology. COMPARISON: None. FINDINGS: VERTEBRAE: L4 spondylolysis is noted with grade 1 L4-5 spondylolisthesis. SPINAL CORD: Normal. Normal position and signal intensity of the conus medullaris. SOFT TISSUES: Normal. DISCS/SPINAL CANAL/NEURAL FORAMINA: L1-2: Mild disc bulging and facet arthropathy. No significant narrowing of the spinal canal and neural foramina. L2-3: Mild disc space narrowing and disc bulging. Additional facet arthropathy and ligamentous hypertrophy results in mild spinal stenosis. Mild narrowing of the neural foramina. L3-4: Minimal retrolisthesis of L3 on L4 associated with narrowing of the posterior portion of the disc space. Mild disc bulging, ligamentous hypertrophy and facet arthropathy without significant spinal stenosis. Mild to moderate narrowing of the neural foramina related to facet arthropathy. L4-5: Mild disc bulging and facet arthropathy results in moderate to severe right and moderate left neural foraminal narrowing. No significant compression of the thecal sac. L5-S1: No disc protrusion. Normal caliber spinal canal. Mild narrowing of the neural foramina related to facet arthropathy. MRI/Spine Lumbar (Routine) IMPRESSION: Multilevel disc degeneration facet arthropathy without significant spinal stenosis. Prominent neural foraminal narrowing at the L4-5 level related to bony hypertrophy, disc bulging and L4-5 spondylolisthesis. Electronically Signed: Himanshu Lassiter MD at 8:42 EDT ,
--- NOTE | 2022-07-12 17:10 | MRI_ITS ---
EXAM: MR CERVICAL SPINE WITHOUT INTRAVENOUS CONTRAST CLINICAL INDICATION: Neck pain, gait imbalance, lower extremity weaknes TECHNIQUE: Multiplanar and multisequence MR images of the cervical spine without intravenous contrast were performed. This report was created using [employer] report [employer] technology. COMPARISON: None. FINDINGS: VERTEBRAE: Partial loss of the normal cervical lordosis. No bone marrow edema. Normal craniocervical junction and cervicothoracic junction. No spondylolisthesis. INTERSPACES: Multilevel disc space narrowing. SPINAL CORD: Cervical cord is normal. SOFT TISSUES: Unremarkable. LYMPH NODES: Normal. There is no cervical adenopathy. DISCS/SPINAL CANAL/NEURAL FORAMINA: C2-3: No disc space narrowing are protrusion. Redundancy of the posterior ligament causes minimal impression on the thecal sac. Intact neural foramina. Normal spinal canal. C3-4: No disc protrusion. Normal caliber spinal canal and neural foramina. C4-5: Narrowing of the disc space. Broad-based disc protrusion and posterior ligamentous redundancy results in moderate spinal stenosis with AP diameter of the thecal sac measuring 4.5 mm. Prominent left neural foraminal narrowing related to uncinate joint hypertrophy. C5-6: Prominent disc space narrowing. Right central disc protrusion causes mild compression of the thecal sac. Moderate narrowing of the right neural foramen related to uncinate joint hypertrophy. Normal spinal canal. C6-7: Disc space narrowing. Disc osteophyte complex causes mild compression of the thecal sac. Moderate narrowing of neural foramina more prominent on the left than right related to uncinate joint hypertrophy. Normal spinal canal. C7-T1: Normal. Normal disc height and morphology. Normal spinal canal. Normal neuroforamina. MRI/Spine Cervical (Routine) IMPRESSION: Spinal stenosis at the C4-5 level related to disc protrusion and posterior ligamentous redundancy. Mild C5-6 spinal stenosis. Multilevel neural foraminal narrowing as described. Electronically Signed: Himanshu Lassiter MD at 8:52 EDT ,
== END | disposition home or self-care (01) ==
LOC: MRI 17:10
PROVIDERS: PCP Family Medicine; Referring Provider Psychiatry & Neurology Neurology; Visit Provider Psychiatry & Neurology Neurology
DX: M50.221 Other cervical disc displacement at C4-C5 level (principal); M43.16 Spondylolisthesis, lumbar region; M51.26 Other intervertebral disc displacement, lumbar region; M48.061 Spinal stenosis, lumbar region without neurogenic claudication; R53.1 Weakness; R26.9 Unspecified abnormalities of gait and mobility
CPT/HCPCS: 72141; 72148

== ENCOUNTER 2022-08-13 09:40 | Emergency (ER) | payer MEDICARE, BC, SELFPAY ==
[2022-08-13 09:42] VITALS: BP 161/80; PULSE 68; RESP 17; TEMP 36.4; O2SAT 98
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
[2022-08-13] MEDS: Colchicine 0.6 MG TABLET 1.2 MG PO (11:11)
[2022-08-13 11:12] VITALS: RESP 18
== END 2022-08-13 11:13 | disposition home or self-care (01) ==
LOC: ED 10:08
PROVIDERS: Emergency Provider Emergency Medicine; PCP Family Medicine; Visit Provider Emergency Medicine
DX: M10.9 Gout, unspecified (principal); Z79.899 Other long term (current) drug therapy
CPT/HCPCS: 99283

== ENCOUNTER → 2022-09-27 | Outpatient (CLI) | payer MEDICARE, BC, SELFPAY ==
--- NOTE | 2022-09-27 16:27 | RAD_ITS ---
EXAM: XR RIGHT TIBIA AND FIBULA, 2 VIEWS CLINICAL INDICATION: Contusion of right lower leg TECHNIQUE: Frontal and lateral views of the right tibia and fibula. This report was created using [employer] report generation technology. COMPARISON: None. FINDINGS: BONES/JOINTS: Moderate tricompartmental osteoarthrosis involving the knee. Small intra-articular ossific bodies are seen posteriorly at the level of the knee joint line. No acute or healing fracture or malalignment. Prominent plantar calcaneal enthesophyte. No sclerotic or destructive changes observed. SOFT TISSUES: Diffuse soft tissue swelling about the ankle. No radiopaque foreign body. RAD/Tibia & Fibula 2 Views IMPRESSION: No acute or healing fracture or malalignment. Electronically Signed: Juan Tran MD at 3:19 EST ,
== END | disposition home or self-care (01) ==
LOC: MTRAD 16:26
PROVIDERS: PCP Family Medicine; Referring Provider Family Medicine; Visit Provider Family Medicine
DX: S80.11XA Contusion of right lower leg, initial encounter (principal)
CPT/HCPCS: 73590

== ENCOUNTER → 2022-10-13 | Outpatient (CLI) | payer MEDICARE, BC, SELFPAY ==
--- NOTE | 2022-10-13 12:36 | RAD_ITS ---
INDICATION: HIP PAIN -- paper order stated bilateral but internal order did not EXAMINATION/TECHNIQUE: X-RAY - XR Hips Bilateral with Pelvis when performed; 2 Views: AP view pelvis with AP and lateral views bilateral hips COMPARISON: None. FINDINGS: PELVIC BONES: No displaced fracture, destructive or sclerotic lesions. Note that overlapping bowel shadows may however obscure fine detail. Sacroiliac joints are unremarkable. No widening of the pubic symphysis. Degenerative changes along imaged lower lumbar spine. HIPS: Mild bilateral hip degenerative joint space narrowing. No fracture, dislocation or suspicious osseous lesion. SOFT TISSUES: Scattered small vascular calcifications noted. RAD/Hips B/L min 2 views w/ Pelvis IMPRESSION: Mild bilateral hip osteoarthrosis. Lumbar spondylosis. Electronically Signed: Al Lou MD at 1:16 EST ,
--- NOTE | 2022-10-13 13:20 | VDLE_ITS ---
Reason For Study: swelling RIGHT GSV is normal. CFV is compressible, spontaneous, phasic, competent and demonstrates normal augmentation. FV is compressible, spontaneous, phasic, competent and demonstrates normal augmentation. POP V is compressible, spontaneous, phasic, competent and demonstrates normal augmentation. T/P Trunk is compressible. PTV is compressible. RT PerV is compressible. Procedure This is a venous duplex using B-mode, color flow and spectral Doppler. Exam performed in department. The exam was abbreviated due to the COVID 19 protocol. The exam was diagnostic. A preliminary report was called and/or faxed to Dr. Knutson. VL/Venous Duplex US, Unilateral Interpretation Summary Deep veins of the right lower extremity are patent and compressible segmentally . There is no evidence of right lower extremity deep vein thrombosis. The right great sapheno us vein appears patent and compressible segmentally. Ordering Physician: Chriss Kntuson Performed By: Bill Young RVT
== END | disposition home or self-care (01) ==
LOC: CVS 12:34
PROVIDERS: PCP Family Medicine; Referring Provider Family Medicine; Visit Provider Family Medicine
DX: M25.551 Pain in right hip (principal); M25.552 Pain in left hip; M79.89 Other specified soft tissue disorders; M16.0 Bilateral primary osteoarthritis of hip
CPT/HCPCS: 73521; 93971

== ENCOUNTER 2022-11-29 08:00 | Outpatient (RCR) | payer MEDICARE, BC, SELFPAY ==
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
--- NOTE | 2022-11-29 12:40 | HP.PTREVAL ---
Dr. Chriss Knutson MD, It has been my pleasure to treat TRISH CUNNINGHAM over the last 8 visits for frequent falls and imbalance. Please see the progress note below for an update on the physical therapy plan of care! Subjective: Pt. reports no major issues. He reports still having the fear of falling, but his hip is feeling a little bit better. He is to is going to see surgeon about back and neck. Pt. has not fallen since starting PT. Objective/Function: Pt. overall has good strength in BLEs, He does have functional weakness in B calves. He can PF against manual resistance, but unable to effectively raise standing. TU.2 sec with SPC, 19.3sec without. FGA: . Pt. struggled with narrow JUAN, retro, eyes closed positioning. STAIRS: Pt. is able to negotiate, but has to really focus on stability and uses B UE on HR to complete. GAIT: Pt. ambulates with SPC with fair balance. He had to take his time to complete safely. If I remove the cane his balance has marked digression. He has difficulty with correcting balance and is attempting to consistently correct fwrd/retro rocking. It appears that due to his marked inability to push off with his toes (ankle plantar flexion) to correct fwrd lean, that he stays in more retor positioning to compensate. However buy doing so, it puts him in a larger risk of going to far retro and losing his balance in this direction. Plan Plan: Pt. to come in x1 per week for 4 weeks. Update his HEP weekly to progress at home. Work on PF strengthening and stability in stance and dynamic balance activities. I want him to work on PF strengthening and ability to stabilize Balance/Gait/Functional tests - Balance/Special Test Scores Functional Gait Assessment Score: 14 % Disability: 53.3400 Lower Extremity Functional Score: 27 TUG Test Time Seconds: 15.2 Tug Test: <20 sec.=mostly independent Goals Goal 1:: LTG: Pt. to be I with HEP. Goal Time Frame: 4-6 Weeks Goal Progress: Progressing Goal 2:: LTG: PT. to have improved TUG score to less than 12 sec without AD. Goal Time Frame: 4-6 Weeks Goal Progress: Progressing Goal 3:: STG: Pt. to have improved gait pattern with increased control in SLS with use of SPC. Goal Time Frame: 2 Weeks Goal Progress: Progressing Goal 4:: LTG: Pt. to ambulate with LRD with AYAH allowing for increased safety and much reduced risk for falls. Goal Time Frame: 4-6 Weeks Goal Progress: Progressing Goal 5:: LTG: Pt. to have improved CATSIB score to with in normal range indicating improved stability in stance. Goal Time Frame: 4-6 Weeks Goal Progress: Progressing Anticipated Interventions Patient/Client Instruction: Educate patient on: Condition, Plan of Care, Risk Factors, Benefits of Fitness Program For the Purpose of:: To improve decision making, To facilitate caregiver knowledge, To improve self management, To prevent re-injury, To improve ability to perform tasks related to life management Therapeutic Exercise to Include: Strength training, Balance training, Coordination, Body mechanics, Postural training, Flexibilty training, Gait and locomotor training For the Purpose of:: To decrease pain, To decrease swelling/inflammation, To increase ROM, To improve nutrient delivery to tissue, To increase oxygenation perfusion, To improve muscle performance and motor function, To improve gait and locomotor functions, To improve health of tissue, To decrease soft tissue restriction Please do not hesitate to contact me at [phone] by phone or if you have questions or concerns regarding this new plan of care! Sincerely, Milton Lombardo DPT
== END 2022-11-29 19:00 | disposition home or self-care (01) ==
LOC: PT 08:00
PROVIDERS: PCP Family Medicine; Referring Provider Family Medicine; Visit Provider Family Medicine
DX: G62.9 Polyneuropathy, unspecified (principal); R29.6 Repeated falls; R26.89 Other abnormalities of gait and mobility
CPT/HCPCS: 97110; 97161; 97164

== ENCOUNTER → 2023-01-26 | Outpatient (CLI) | payer MEDICARE, BC, SELFPAY ==
[2023-01-26 12:19] LABS: Absolute Lymphocyte Count 1.28 X10^3/uL (0.83-4.51); Basophil# 0.02 X10^3/uL; Basophil% 0.3 % (0-1); Eosinophils% 1.7 % (0-5); Hematocrit 41.4 % (40-54); Hemoglobin 13.3 g/dL (13.0-16.5); Lymphocyte # 1.28 X10^3/ul (0.83-4.51); Lymphocyte % 21.7 % (19-41); Mean Corp Hgb Conc 32.1 g/dL (32-36); Mean Corpuscular Hgb 31.6 pg (27.0-32.0); Mean Corpuscular Volume 98.3 fL (80-94); Mean Platelet Vol. 9.6 fl (6.2-12.0); Monocyte% 8.5 % (0-10); NRBC Flagged by Analyzer 0 % (0-5); Neutrophil # 3.98 X10^3/uL (2.7-7.7); Neutrophil % 67.5 % (47-70); Platelet Count 181 K/mm3 (150-450); RBC Distribution Width CV 13.9 % (11.6-14.6); RBC Distribution Width SD 50.4 fl (35.1-43.9); Red Blood Count 4.21 M/mm3 (4.6-6.2); White Blood Count 5.9 K/mm3 (4.4-11.0)
[2023-01-26 13:04] LABS: Vitamin D,25 Hydroxy 37.2 ng/mL
[2023-01-26 13:27] LABS: Hemoglobin A1c 6.3 % (3.8-5.6)
[2023-01-26 13:34] LABS: ALB/GLOB Ratio 1.1 RATIO (0.9-2.4); AST(SGOT) 43 U/L (15-37); Alanine Aminotransfer ALT/SGPT 65 U/L (16-61); Albumin, Serum 3.7 g/dL (3.2-5.0); Alkaline Phosphatase 73 U/L (45-117); Anion Gap 7 (5-15); BUN 18 mg/dL (7-18); BUN/Creat Ratio 18.4 RATIO (10-20); Calcium,Total 8.9 mg/dL (8.5-10.1); Chloride 103 mmol/L (98-107); Cholesterol 143 mg/dL (200); Creatinine, Serum 0.98 mg/dL (0.70-1.30); EST Glomerular Filtration Rate 78 mL/min (>60); Est Glom Filt Rate - Afr Amer 95 mL/min (>60); Globulin 3.4 g/dL (2.2-4.2); Glucose 84 mg/dL (74-106); High Density Lipoprotein 45 mg/dL; Potassium 3.9 mmol/L (3.5-5.1); Protein, Total 7.1 g/dL (6.4-8.2); Sodium Level 138 mmol/L (136-145); T4 Free Direct 1.08 ng/dL (0.76-1.46); Thyroid Stim Hormone (TSH) 4.59 uIU/mL (0.358-3.74); Triglycerides 251 mg/dL; Uric Acid 5.1 mg/dL (3.5-7.2); Very Low Density Lipoprotein 50 mg/dL (5-40)
[2023-01-27 15:09] LABS: Anti-Thyroglobulin AB < 1.0 IU/mL (0.0-0.9); Thyroglobulin, Serum Qt. < 0.1 ng/mL (1.4-29.2)
== END | disposition home or self-care (01) ==
LOC: MFPLAB 10:26
PROVIDERS: PCP Family Medicine; Referring Provider Family Medicine; Visit Provider Family Medicine
DX: E78.5 Hyperlipidemia, unspecified (principal); E89.0 Postprocedural hypothyroidism; E55.9 Vitamin D deficiency, unspecified; M10.9 Gout, unspecified; R73.02 Impaired glucose tolerance (oral)
CPT/HCPCS: 36415; 80053; 80061; 82306; 83036; 84432; 84439; 84443; 84550; 85025; 86800

== ENCOUNTER → 2023-03-28 | Outpatient (CLI) | payer MEDICARE, BC, SELFPAY ==
[2023-03-30 15:09] LABS: Albumin 3.6 g/dL (2.9-4.4); Alpha-1-Globulins 0.3 g/dL (0.0-0.4); Alpha-2-Globulins 0.8 g/dL (0.4-1.0); Gamma Globulin 0.9 g/dL (0.4-1.8); Immunoglobulin A 263 mg/dL (61-437); Immunoglobulin G 821 mg/dL (603-1613); Immunoglobulin M 152 mg/dL (15-143); PROEL- TOTAL PROTEIN 6.7 g/dL (6.0-8.5)
== END | disposition home or self-care (01) ==
LOC: MTLAB 09:39
PROVIDERS: PCP Family Medicine; Referring Provider Psychiatry & Neurology Neurology; Visit Provider Psychiatry & Neurology Neurology
DX: G62.9 Polyneuropathy, unspecified (principal)
CPT/HCPCS: 36415; 82784; 84165; 86334; 86335

== ENCOUNTER → 2023-04-07 | Outpatient (CLI) | payer MEDICARE, BC, SELFPAY ==
--- NOTE | 2023-04-07 09:31 | ART_ITS ---
Reason For Study: absent left pedal pulse, bilat calf cramps. Procedure A bilateral lower extremity continuous wave Doppler with analog waveform analysis and ankle brachial indexes. Left Segmental Pressures Left brachial= 123mmHg. Left posterior tibial artery = 142mmHg. Left dorsalis pedis artery = 141mmHg. The left posterior tibial artery waveforms are triphasic. The left dorsalis pedis waveforms are triphasic. Right Segmental Pressures Right brachial= 123mmHg. Right posterior tibial artery = 143mmHg. Right dorsalis pedis artery = 135mmHg. The right posterior tibial artery waveforms are triphasic. The right dorsalis pedis waveforms are triphasic. Indices The right resting ankle brachial index is 1.16. The right ankle brachial index by the posterior tibial artery is 1.16. The right ankle brachial index by the dorsalis pedis is 1.10. The left resting ankle brachial index is 1.15. The left ankle brachial index by the posterior tibial artery is 1.15. The left ankle brachial index by the dorsalis pedis is 1.15. VL/Ankle Brachial Index Interpretation Summary Right CATALINA 1.16, normal. Doppler/PVR waveforms of the right leg normal at rest. Left CATALINA 1.15, normal. Doppler/PVR waveforms of the left leg normal at rest. Ordering Physician: Aly Viera Referring Physician: JAYDA LEACH MD Performed By: Ayana Salazar RVJack, RDCS
== END | disposition home or self-care (01) ==
LOC: CVS 09:31
PROVIDERS: PCP Family Medicine; Referring Provider Psychiatry & Neurology Neurology; Visit Provider Psychiatry & Neurology Neurology
DX: R09.89 Other specified symptoms and signs involving the circulatory and respiratory systems (principal)
CPT/HCPCS: 93922

== ENCOUNTER → 2023-08-10 | Outpatient (CLI) | payer MEDICARE, BC, SELFPAY ==
[2023-08-10 17:42] LABS: Absolute Lymphocyte Count 1.36 X10^3/uL (0.83-4.51); Absolute Neutrophil Count 3.7 X10^3/uL (2.0-7.7); Basophil# 0.02 X10^3/uL; Basophil% 0.3 % (0-1); Eosinophil# 0.12 X10^3/uL; Eosinophils% 2.1 % (0-5); Hematocrit 41.4 % (40-54); Hemoglobin 13.2 g/dL (13.0-16.5); Lymphocyte # 1.36 X10^3/ul (0.83-4.51); Lymphocyte % 23.7 % (19-41); Mean Corp Hgb Conc 31.9 g/dL (32-36); Mean Corpuscular Hgb 32.2 pg (27.0-32.0); Mean Platelet Vol. 9.6 fl (6.2-12.0); Monocyte# 0.54 X10^3/uL; Monocyte% 9.4 % (0-10); NRBC Flagged by Analyzer 0 % (0-5); Neutrophil # 3.66 X10^3/uL (2.7-7.7); Platelet Count 182 K/mm3 (150-450); RBC Distribution Width CV 13.8 % (11.6-14.6); White Blood Count 5.7 K/mm3 (4.4-11.0)
[2023-08-10 17:56] LABS: Hemoglobin A1c 6.2 % (3.8-5.6)
[2023-08-10 17:57] LABS: Vitamin D,25 Hydroxy 42.8 ng/mL
[2023-08-10 18:03] LABS: ALB/GLOB Ratio 0.9 RATIO (0.9-2.4); AST(SGOT) 24 U/L (15-37); Alanine Aminotransfer ALT/SGPT 47 U/L (16-61); Albumin, Serum 3.5 g/dL (3.2-5.0); Alkaline Phosphatase 75 U/L (45-117); Anion Gap 5 (5-15); BUN 18 mg/dL (7-18); BUN/Creat Ratio 15.5 RATIO (10-20); Calcium,Total 9.2 mg/dL (8.5-10.1); Chloride 105 mmol/L (98-107); Cholesterol 111 mg/dL (200); Creatinine, Serum 1.16 mg/dL (0.70-1.30); EST Glomerular Filtration Rate 64 mL/min (>60); Est Glom Filt Rate - Afr Amer 78 mL/min (>60); Globulin 3.7 g/dL (2.2-4.2); Glucose 126 mg/dL (74-106); High Density Lipoprotein 44 mg/dL; Potassium 3.8 mmol/L (3.5-5.1); Protein, Total 7.2 g/dL (6.4-8.2); Sodium Level 139 mmol/L (136-145); T4 Free Direct 1.39 ng/dL (0.76-1.46); Thyroid Stim Hormone (TSH) 0.56 uIU/mL (0.358-3.74); Triglycerides 143 mg/dL; Uric Acid 5.4 mg/dL (3.5-7.2); Very Low Density Lipoprotein 29 mg/dL (5-40)
[2023-08-23 00:06] LABS: Anti-Thyroglobulin AB 1.2 IU/mL (0.0-0.9); Thyroglobulin RIA < 2.0 ng/mL (.)
== END | disposition home or self-care (01) ==
LOC: MFPLAB 15:50
PROVIDERS: PCP Family Medicine; Visit Provider Family Medicine
DX: E78.5 Hyperlipidemia, unspecified (principal); R73.02 Impaired glucose tolerance (oral); E55.9 Vitamin D deficiency, unspecified
CPT/HCPCS: 36415; 80053; 80061; 82306; 83036; 84432; 84439; 84443; 84550; 85025; 86800

== ENCOUNTER → 2023-08-31 | Outpatient (CLI) | payer MEDICARE, BC, SELFPAY ==
--- NOTE | 2023-08-31 10:59 | US_ITS ---
STUDY: ULTRASOUND - URINARY BLADDER REASON FOR EXAM: Male, 83 years old. bph, incomplete emptying . 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 TECHNIQUE: Ultrasound evaluation of the urinary bladder was performed with real-time and static york-scale imaging. COMPARISON: None. FINDINGS: There is no right UVJ calculus. There is a visualized right ureteral jet. The distended volume of the urinary bladder is 94.3 ml. The empty volume of the urinary bladder is 51 ml. The bladder wall is within normal limits. The bladder wall measures 2.4 mm. There is no demonstrated bladder wall mass lesion. There are no demonstrated bladder calculi. US/Post Void Residual Bladder IMPRESSION: Moderate post void residual. Electronically Signed: Mumtaz Julian MD at 13:03 EDT ,
== END | disposition home or self-care (01) ==
LOC: US 10:59
PROVIDERS: PCP Family Medicine; Referring Provider Family Medicine; Visit Provider Family Medicine
DX: N40.1 Benign prostatic hyperplasia with lower urinary tract symptoms (principal); R39.14 Feeling of incomplete bladder emptying
CPT/HCPCS: 51798

== ENCOUNTER → 2024-02-13 | Outpatient (CLI) | payer MEDICARE, BC, SELFPAY ==
[2024-02-13 08:56] LABS: PSA,Total - Annual Screen 1.58 ng/mL (0.00-4.00)
== END | disposition home or self-care (01) ==
LOC: LAB 08:09
PROVIDERS: PCP Family Medicine; Referring Provider Urology; Visit Provider Urology
DX: Z12.5 Encounter for screening for malignant neoplasm of prostate (principal)
CPT/HCPCS: 36415; 84153; G0103

== ENCOUNTER → 2024-02-16 | Outpatient (CLI) | payer MEDICARE, BC, SELFPAY ==
[2024-02-16 11:24] LABS: Absolute Lymphocyte Count 1.21 X10^3/uL (0.83-4.51); Absolute Neutrophil Count 3.6 X10^3/uL (2.0-7.7); Basophil# 0.03 X10^3/uL; Basophil% 0.6 % (0-1); Eosinophils% 1.9 % (0-5); Hematocrit 40.9 % (40-54); Hemoglobin 13.2 g/dL (13.0-16.5); Lymphocyte # 1.21 X10^3/ul (0.83-4.51); Lymphocyte % 22.6 % (19-41); Mean Corp Hgb Conc 32.3 g/dL (32-36); Mean Corpuscular Hgb 31.5 pg (27.0-32.0); Mean Corpuscular Volume 97.6 fL (80-94); Mean Platelet Vol. 9.3 fl (6.2-12.0); Monocyte# 0.42 X10^3/uL; Monocyte% 7.9 % (0-10); NRBC Flagged by Analyzer 0 % (0-5); Neutrophil # 3.57 X10^3/uL (2.7-7.7); Neutrophil % 66.6 % (47-70); Platelet Count 213 K/mm3 (150-450); RBC Distribution Width SD 50.1 fl (35.1-43.9); Red Blood Count 4.19 M/mm3 (4.6-6.2); White Blood Count 5.4 K/mm3 (4.4-11.0)
[2024-02-16 11:42] LABS: Hemoglobin A1c 5.7 % (3.8-5.6)
[2024-02-16 11:44] LABS: Vitamin D,25 Hydroxy 45.1 ng/mL
[2024-02-16 11:58] LABS: AST(SGOT) 24 U/L (15-37); Alanine Aminotransfer ALT/SGPT 33 U/L (16-61); Albumin, Serum 3.5 g/dL (3.2-5.0); Alkaline Phosphatase 74 U/L (45-117); Anion Gap 6 (5-15); BUN 17 mg/dL (7-18); BUN/Creat Ratio 15.6 RATIO (10-20); Calcium,Total 9.3 mg/dL (8.5-10.1); Chloride 109 mmol/L (98-107); Cholesterol 104 mg/dL (200); Creatinine, Serum 1.09 mg/dL (0.70-1.30); EST Glomerular Filtration Rate 69 mL/min (>60); Est Glom Filt Rate - Afr Amer 83 mL/min (>60); Globulin 3.4 g/dL (2.2-4.2); Glucose 131 mg/dL (74-106); High Density Lipoprotein 37 mg/dL; Potassium 3.9 mmol/L (3.5-5.1); Protein, Total 6.9 g/dL (6.4-8.2); Sodium Level 140 mmol/L (136-145); T4 Free Direct 1.57 ng/dL (0.76-1.46); Thyroid Stim Hormone (TSH) 0.41 uIU/mL (0.358-3.74); Triglycerides 136 mg/dL; Uric Acid 5.4 mg/dL (3.5-7.2); Very Low Density Lipoprotein 27 mg/dL (5-40)
== END | disposition home or self-care (01) ==
LOC: MFPLAB 08:40
PROVIDERS: PCP Family Medicine; Visit Provider Family Medicine
DX: R73.02 Impaired glucose tolerance (oral) (principal); E55.9 Vitamin D deficiency, unspecified; E89.0 Postprocedural hypothyroidism; M10.9 Gout, unspecified
CPT/HCPCS: 36415; 80053; 80061; 82306; 83036; 84439; 84443; 84550; 85025

== ENCOUNTER → 2024-03-19 | Outpatient (CLI) | payer MEDICARE, BC, SELFPAY ==
--- NOTE | 2024-03-19 13:23 | RAD_ITS ---
STUDY: X-RAY - ACUTE ABDOMINAL SERIES REASON FOR EXAM: Male, 83 years old. Constipation. TECHNIQUE: Single view of the chest. Supine, and erect view(s) of the abdomen were obtained on 5 images. COMPARISON: Chest dated May 29, 2021 FINDINGS: Stable hyperinflation with scattered healed parenchymal granulomatous calcifications. Mild cardiomegaly unchanged. Normal mediastinum and ghazal. Normal visualized pulmonary arteries. Aortic tortuosity with calcification unchanged. Normal bowel gas pattern with air seen to the rectosigmoid. Moderate to marked amount of feces in the colon which may represent constipation. Postoperative changes in the right upper quadrant and both lower quadrants of the abdomen. Normal visualized osseous structures. RAD/Acute Abdomen Inc Chest IMPRESSION: Stable chest with cardiomegaly and hyperinflation. Moderate to marked amount of feces in the colon which may represent constipation. No acute abnormality identified. Electronically Signed: Marv Dow MD at 13:56 EDT ,
== END | disposition home or self-care (01) ==
LOC: MTRAD 13:12
PROVIDERS: PCP Family Medicine; Referring Provider Family Medicine; Visit Provider Family Medicine
DX: K59.00 Constipation, unspecified (principal)
CPT/HCPCS: 74022

== ENCOUNTER → 2024-04-09 | Outpatient (CLI) | payer MEDICARE, BC, SELFPAY ==
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
== END | disposition home or self-care (01) ==
LOC: RAD 12:29
PROVIDERS: PCP Family Medicine; Referring Provider Family Medicine; Visit Provider Family Medicine
DX: R13.10 Dysphagia, unspecified (principal)
CPT/HCPCS: 74230; 92611

== ENCOUNTER → 2024-06-21 | Outpatient (CLI) | payer MEDICARE, BC, SELFPAY ==
[2024-06-21 10:30] LABS: Absolute Lymphocyte Count 1.33 X10^3/uL (0.83-4.51); Basophil# 0.03 X10^3/uL; Basophil% 0.5 % (0-1); Eosinophil# 0.08 X10^3/uL; Eosinophils% 1.4 % (0-5); Hematocrit 41.3 % (40-54); Hemoglobin 13.4 g/dL (13.0-16.5); Lymphocyte # 1.33 X10^3/ul (0.83-4.51); Lymphocyte % 22.5 % (19-41); Mean Corp Hgb Conc 32.4 g/dL (32-36); Mean Corpuscular Hgb 32.5 pg (27.0-32.0); Mean Corpuscular Volume 100.2 fL (80-94); Mean Platelet Vol. 10.2 fl (6.2-12.0); Monocyte# 0.47 X10^3/uL; Monocyte% 7.9 % (0-10); NRBC Flagged by Analyzer 0 % (0-5); Neutrophil # 3.95 X10^3/uL (2.7-7.7); Neutrophil % 66.7 % (47-70); Platelet Count 175 K/mm3 (150-450); RBC Distribution Width CV 13.4 % (11.6-14.6); RBC Distribution Width SD 49.8 fl (35.1-43.9); Red Blood Count 4.12 M/mm3 (4.6-6.2); White Blood Count 5.9 K/mm3 (4.4-11.0)
[2024-06-21 10:48] LABS: AST(SGOT) 18 U/L (15-37); Alanine Aminotransfer ALT/SGPT 37 U/L (16-61); Albumin, Serum 3.4 g/dL (3.2-5.0); Alkaline Phosphatase 70 U/L (45-117); Anion Gap 6 (5-15); BUN 15 mg/dL (7-18); BUN/Creat Ratio 13.4 RATIO (10-20); CPK Total, Creatine Kinase 142 U/L (39-308); Chloride 107 mmol/L (98-107); Cholesterol 125 mg/dL (200); Creatinine, Serum 1.12 mg/dL (0.70-1.30); EST Glomerular Filtration Rate 67 mL/min (>60); Est Glom Filt Rate - Afr Amer 81 mL/min (>60); Ferritin 59 ng/mL (26-388); Globulin 3.5 g/dL (2.2-4.2); Glucose 108 mg/dL (74-106); High Density Lipoprotein 44 mg/dL; Magnesium 2.2 mg/dL (1.6-2.6); Potassium 4.1 mmol/L (3.5-5.1); Protein, Total 6.9 g/dL (6.4-8.2); Sodium Level 140 mmol/L (136-145); Triglycerides 167 mg/dL; Very Low Density Lipoprotein 33 mg/dL (5-40); Vitamin D,25 Hydroxy 51.7 ng/mL
[2024-06-21 10:58] LABS: Hemoglobin A1c 5.5 % (3.8-5.6)
== END | disposition home or self-care (01) ==
LOC: MFPLAB 08:13
PROVIDERS: PCP Family Medicine; Visit Provider Family Medicine
DX: R73.02 Impaired glucose tolerance (oral) (principal); E89.0 Postprocedural hypothyroidism; M79.10 Myalgia, unspecified site; E78.5 Hyperlipidemia, unspecified; E55.9 Vitamin D deficiency, unspecified
CPT/HCPCS: 36415; 80053; 80061; 82306; 82550; 82728; 83036; 83735; 85025

== ENCOUNTER → 2024-07-31 | Outpatient (CLI) | payer MEDICARE, BC, SELFPAY ==
--- NOTE | 2024-07-31 08:48 | MRI_ITS ---
HISTORY: gait disorder; cervical spinal stenosis. TECHNIQUE: Multiplanar and multisequence MR images of the cervical spine were obtained without contrast. 280 images. COMPARISON: 07/12/2022. FINDINGS: VERTEBRAE: Vertebral body heights maintained. Mild degenerative endplate changes at multiple levels. Chronic T11 vertebral body hemangioma. VERTEBRAL ALIGNMENT: Straightening of the cervical lordosis without significant anterior or posterior subluxation. SPINAL CORD: Cervical cord signal and morphology unremarkable. SOFT TISSUES: No prevertebral fluid collection. INTERVERTEBRAL DISCS: Posterior disc bulge osteophyte complexes with uncovertebral and facet arthropathy at multiple levels. C2-3: Mild central canal stenosis and dorsal cord abutment, similar to prior. No significant foraminal narrowing. C3-4: Minimal narrowing of the thecal sac, similar to prior. No significant foraminal narrowing. C4-5: Severe central canal stenosis with cord impingement and moderate bilateral foraminal narrowing again seen. C5-6: Right paracentral disc protrusion resulting in moderate central canal stenosis, mild right ventral cord impingement, right traversing nerve root abutment, and bilateral foraminal narrowing again seen. C6-7: Mild central canal stenosis and bilateral foraminal narrowing again seen. C7-T1: No significant posterior disc protrusion, central canal stenosis, or foraminal narrowing. MRI/Spine Cervical (Routine) IMPRESSION: Multilevel degenerative disc disease of the cervical spine, similar to prior. Severe spinal canal stenosis with spinal cord impingement and moderate bilateral foraminal narrowing at C4-5. Moderate spinal canal stenosis with mild cord impingement, right nerve root abutment, and bilateral foraminal narrowing at C5-6. Electronically Signed: Lashon Garcia MD at 13:24 EDT ,
== END | disposition home or self-care (01) ==
LOC: MRI 08:40
PROVIDERS: PCP Family Medicine; Referring Provider Psychiatry & Neurology Neurology; Visit Provider Psychiatry & Neurology Neurology
DX: M48.02 Spinal stenosis, cervical region (principal); R26.9 Unspecified abnormalities of gait and mobility
CPT/HCPCS: 72141

== ENCOUNTER → 2024-08-16 | Outpatient (CLI) | payer MEDICARE, BC, SELFPAY ==
--- NOTE | 2024-08-16 15:45 | RAD_ITS ---
STUDY: XR Chest 2 Views 08/16/2024 3:59 PM REASON FOR EXAM: Male, 84 years old. dyspnea, cough COMPARISON: 5.21.24 TECHNIQUE: XR Chest 2 Views FINDINGS: There is no demonstrated pleural abnormality. The lung betancourt are hyperexpanded. Normal heart size. Normal mediastinum. Normal ghazal. Prominent appearing increased interstitial lung markings. Normal visualized pulmonary arteries. There is atherosclerotic calcification of the aortic arch with tortuosity. There are diffuse degenerative changes of the visualized thoracic spine. There is degenerative osteoarthritis of the bilateral shoulders. There are no acute findings of the upper abdomen. RAD/Chest PA and Lateral IMPRESSION: There are no acute findings. Electronically Signed: Jerald Vides MD at 14:58 EDT ,
== END | disposition home or self-care (01) ==
LOC: MTRAD 15:35
PROVIDERS: PCP Family Medicine; Referring Provider Internal Medicine Pulmonary Disease; Visit Provider Internal Medicine Pulmonary Disease
DX: R06.00 Dyspnea, unspecified (principal); I27.20 Pulmonary hypertension, unspecified; R05.9 Cough, unspecified
CPT/HCPCS: 71046

== ENCOUNTER → 2024-10-31 | Outpatient (CLI) | payer MEDICARE, BC, SELFPAY ==
[2024-10-31 10:21] LABS: Absolute Lymphocyte Count 1.26 X10^3/uL (0.83-4.51); Absolute Neutrophil Count 4.8 X10^3/uL (2.0-7.7); Basophil# 0.03 X10^3/uL; Basophil% 0.5 % (0-1); Eosinophil# 0.09 X10^3/uL; Eosinophils% 1.4 % (0-5); Hemoglobin 13.7 g/dL (13.0-16.5); Lymphocyte # 1.26 X10^3/ul (0.83-4.51); Lymphocyte % 19.1 % (19-41); Mean Corp Hgb Conc 32.6 g/dL (32-36); Mean Corpuscular Hgb 32.3 pg (27.0-32.0); Mean Corpuscular Volume 99.1 fL (80-94); Mean Platelet Vol. 9.4 fl (6.2-12.0); Monocyte# 0.39 X10^3/uL; Monocyte% 5.9 % (0-10); NRBC Flagged by Analyzer 0 % (0-5); Neutrophil # 4.81 X10^3/uL (2.7-7.7); Neutrophil % 72.6 % (47-70); Platelet Count 197 K/mm3 (150-450); RBC Distribution Width SD 51.1 fl (35.1-43.9); Red Blood Count 4.24 M/mm3 (4.6-6.2); White Blood Count 6.6 K/mm3 (4.4-11.0)
[2024-10-31 10:36] LABS: Vitamin D,25 Hydroxy 43.6 ng/mL
[2024-10-31 10:48] LABS: Hemoglobin A1c 5.8 % (3.8-5.6)
[2024-10-31 10:55] LABS: ALB/GLOB Ratio 1.1 RATIO (0.9-2.4); AST(SGOT) 18 U/L (15-37); Alanine Aminotransfer ALT/SGPT 43 U/L (16-61); Albumin, Serum 3.6 g/dL (3.2-5.0); Alkaline Phosphatase 83 U/L (45-117); Anion Gap 6 (5-15); BUN 16 mg/dL (7-18); BUN/Creat Ratio 13.3 RATIO (10-20); Calcium,Total 8.9 mg/dL (8.5-10.1); Chloride 109 mmol/L (98-107); Cholesterol 163 mg/dL (200); EST Glomerular Filtration Rate 61 mL/min (>60); Est Glom Filt Rate - Afr Amer 74 mL/min (>60); Globulin 3.2 g/dL (2.2-4.2); Glucose 142 mg/dL (74-106); High Density Lipoprotein 56 mg/dL; Potassium 3.7 mmol/L (3.5-5.1); Protein, Total 6.8 g/dL (6.4-8.2); Sodium Level 141 mmol/L (136-145); T4 Free Direct 1.08 ng/dL (0.76-1.46); Triglycerides 170 mg/dL; Uric Acid 5.4 mg/dL (3.5-7.2); Very Low Density Lipoprotein 34 mg/dL (5-40)
== END | disposition home or self-care (01) ==
LOC: MFPLAB 08:51
PROVIDERS: PCP Family Medicine; Visit Provider Family Medicine
DX: E89.0 Postprocedural hypothyroidism (principal); E55.9 Vitamin D deficiency, unspecified; R73.02 Impaired glucose tolerance (oral); E78.5 Hyperlipidemia, unspecified
CPT/HCPCS: 36415; 80053; 80061; 82306; 83036; 84439; 84443; 84550; 85025

== ENCOUNTER → 2024-11-06 | Outpatient (CLI) | payer MEDICARE, BC, SELFPAY | END | disposition home or self-care (01) | PROVIDERS: Referring Provider Plastic Surgery; Visit Provider Plastic Surgery | DX: L02.01 Cutaneous abscess of face (principal) | CPT/HCPCS: 87070; 87077; 87186; 87205 ==

== ENCOUNTER 2024-12-05 08:53 | Emergency (ER) | payer MEDICARE, BC, SELFPAY ==
[2024-12-05 08:54] VITALS: BP 146/77; PULSE 94; RESP 16; TEMP 36.7; O2SAT 100; BMI 28.8
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
[2024-12-05 10:44] LABS: Absolute Lymphocyte Count 1.25 X10^3/uL (0.83-4.51); Absolute Neutrophil Count 4.9 X10^3/uL (2.0-7.7); Basophil# 0.02 X10^3/uL; Basophil% 0.3 % (0-1); Eosinophil# 0.11 X10^3/uL; Eosinophils% 1.6 % (0-5); Hematocrit 41.3 % (40-54); Hemoglobin 13.5 g/dL (13.0-16.5); Lymphocyte # 1.25 X10^3/ul (0.83-4.51); Lymphocyte % 18.3 % (19-41); Mean Corp Hgb Conc 32.7 g/dL (32-36); Mean Corpuscular Hgb 32.8 pg (27.0-32.0); Mean Corpuscular Volume 100.2 fL (80-94); Mean Platelet Vol. 8.8 fl (6.2-12.0); Monocyte# 0.51 X10^3/uL; Monocyte% 7.5 % (0-10); NRBC Flagged by Analyzer 0 % (0-5); Neutrophil % 71.7 % (47-70); Platelet Count 180 K/mm3 (150-450); RBC Distribution Width CV 13.8 % (11.6-14.6); RBC Distribution Width SD 50.3 fl (35.1-43.9); Red Blood Count 4.12 M/mm3 (4.6-6.2); White Blood Count 6.8 K/mm3 (4.4-11.0)
[2024-12-05 10:50] VITALS: BP 132/61; PULSE 75; RESP 14; O2SAT 94
[2024-12-05 10:57] LABS: Anion Gap 4 (5-15); BUN 21 mg/dL (7-18); BUN/Creat Ratio 17.6 RATIO (10-20); Calcium,Total 9.1 mg/dL (8.5-10.1); Chloride 108 mmol/L (98-107); Creatinine, Serum 1.19 mg/dL (0.70-1.30); EST Glomerular Filtration Rate 62 mL/min (>60); Est Glom Filt Rate - Afr Amer 75 mL/min (>60); Estimated Creatinine Clearance 58.33 ml/min; Glucose 158 mg/dL (74-106); Potassium 3.5 mmol/L (3.5-5.1); Sodium Level 142 mmol/L (136-145)
--- NOTE | 2024-12-05 11:10 | CT_ITS ---
PROCEDURE: SOFT TISSUE NECK WITH CONTRAST REASON FOR EXAM: History of thyroid cancer and prior thyroidectomy. Prior left nephrectomy. Right jaw pain. TECHNIQUE: CT of the soft tissues of the neck from the orbits to the upper mediastinum with intravenous contrast. CONTRAST: 100 cc of Isovue-300. COMPARISON: None. FINDINGS: Airway: Midline and patent. Pharyngeal mucosal space: Unremarkable. Hypopharynx and larynx: Unremarkable. Parapharyngeal and retropharyngeal spaces: Unremarkable. Panel Coverer and buccal spaces: Unremarkable. Salivary glands: There is evidence of inflammatory changes with enlargement of the right parotid gland. Parotiditis on the right side should be ruled out. Lymph nodes: No cervical lymphadenopathy. Thyroid: The patient is status post right thyroidectomy. Vasculature: Carotid arteries and internal jugular veins are unremarkable. Orbits: Unremarkable at visualized levels. Paranasal sinuses and mastoids: Grossly clear at visualized levels. Lung apices: Clear. Upper mediastinum: Visualized mediastinum is unremarkable. Bones: Multilevel degenerative changes of the spine. CT/Soft Tissue Neck WITH Contrast IMPRESSION: Status post thyroidectomy. Findings in keeping with a right-sided parotitis with inflammatory changes and swelling. One or more dose reduction techniques were used (e.g., Automated exposure contr ol, adjustment of the mA and/or kV according to patient size, use of iterative reconstruction technique). Reading Location: [id number]
[2024-12-05 13:00] VITALS: O2SAT 97
[2024-12-05] MEDS: Amox/Clavulanate 875 MG Tablet PO (13:53)
[2024-12-05] MEDS: Ibuprofen 200 MG Tablet 400 MG PO (13:53)
== END 2024-12-05 14:17 | disposition home or self-care (01) ==
PROVIDERS: Emergency Provider Emergency Medicine; PCP Family Medicine; Visit Provider Emergency Medicine
DX: K11.20 Sialoadenitis, unspecified (principal); Z79.899 Other long term (current) drug therapy
CPT/HCPCS: 70491; 80048; 85025; 99283; Q9967; A4216

== ENCOUNTER 2024-12-20 07:43 | Day surgery (SDC) | payer MEDICARE, BC, SELFPAY ==
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
[2024-12-20] VITALS (8 sets, daily range): BP systolic 102–139; BP diastolic 69–82; PULSE 63–76; RESP 14–20; TEMP 36.3–36.9; O2SAT 93–97; BMI 29.0
[2024-12-20] MEDS: 0.9% Normal Saline (1000mL) 1,000 ML 15 ML IV (08:19)
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
--- NOTE | 2024-12-20 09:20 | HP.PCM_ITS ---
History and Physical Date of Admission: 12/20/24 The patient is examined and there are no changes to the H&P dated 12/19/2024. He is marked in the preop holding area prior to surgery. Informed consent for excision cyst right cheek is reviewed. He is aware of the potential for recurrent cyst despite excision based on previous history of a bscessed cyst and self manipulation of the cyst. Assessment & Plan Assessment/Plan (1) Sebaceous cyst: PLAN: Plan For excision cyst right cheek
[2024-12-20] MEDS: Cefazolin 2 GM in Syringe IV (09:41)
--- NOTE | 2024-12-20 09:50 | CYST_PTH ---
PATIENT: [place]ISH [place] [facility] [id number] AGE/SX: 84/M ROOM: RE12/20/[address]: Dr. Tayler Stoen MD : [id number] BED: DIS: 12/20/2024 SPEC #: [id number] RECD: 12/20/24 13:42 STATUS: YVONNE HERB #: [id number] OG: 12/20/24 09:[address]: Tayler Stone DEPT: SURGICAL PATHOLOGY RECD BY: Liberty Baldwin ENTERED: 12/20/24 13:53 SP TYPE: Cyst OTHR DR: Dr. Chriss Knutson MD Tissues: CYST Procedures: Surgery Specimen Level III HEADER OPERATION: Excision cyst right cheek PRE-OP DIAGNOSIS: Sebaceous cyst TISSUE SUBMITTED: Right cheek sebaceous cyst MICROSCOPIC DIAGNOSIS Right cheek cyst: Epidermal inclusion cyst with evidence of rupture. 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 Focal dermal chronic inflammation and foreign body giant cell reaction in the area suggestive of cyst rupture. PW.mr 12/23 MICROSCOPIC DESCRIPTION Slides are reviewed. GROSS DESCRIPTION Received in fixative is one container labeled with the patient's name and designated Right cheek sebaceous cyst. The specimen consists of a piece of camacho-white skin ellipse measuring 1.6 x 0.7cm and up to 0.5cm in thickness. This specimen is inked, serially sectioned and submitted entirely in one cassette. 12/20/2024 TC:3 CPT:51208
[2024-12-20] MEDS: Lidocaine 1% /Epi 1:100 (20ml) 20 ML Vial (10:21)
[2024-12-20] MEDS: Bacitracin 500 UNITS/GM PACKET (10:25)
--- NOTE | 2024-12-20 10:30 | EX.PCM.DISCH ---
Discharge Instructions Dressing / Incision Additional Dressing/Incision Instructions:: Keep your back elevated (recliner position) for the next 2-3 nights to reduce bruising and swelling. Take the oral antibiotic as directed. May shower over the area, apply a thin layer of antibiotic ointment (like Neosporin, bacitracin, or triple antibiotic ointment) 1 time per day. Follow Up Care Please Follow Up With: Tayler Stone MD When: In 1 to 2 weeks Test Results: Test results from this visit will be discussed in further detail at your follow-up appointment, if applicable. Discharge Plan Admission Attending Provider: Tayler Stone Primary Care Provider: Chriss Knutson Instructions Print Language: Kiswahili Discharge Orders/Prescriptions Prescriptions: No Action nitroglycerin [Nitrostat] 0.4 mg tablet, sublingual 0.4 mg sublingual Q5-15M PRN (Reason: chest pain) Rx Instructions: do not exceed 3 doses per episode bupropion HCl [Wellbutrin XL] 300 mg tablet extended release 24 hr 300 mg PO QAM azelastine 137 mcg (0.1 %) aerosol,spray 1 spray intranasal BID Rx Instructions: administer into each nostril atorvastatin [Lipitor] 10 mg tablet 10 mg PO DAILY doxycycline hyclate 20 mg tablet 20 mg PO Q24H PRN (Reason: SCALP) Patient Comments: As needed dorzolamide-timolol (PF) 2-0.5 % dropperette 1 drp ophthalmic (eye) BID allopurinol 100 mg Tablet 100 mg PO DAILY pantoprazole [Protonix] 40 mg Tablet,Delayed Release (Dr/Ec) 40 mg PO Q12H ibuprofen 200 mg Tablet 400 mg PO Q6H PRN (Reason: Pain) montelukast [Singulair] 10 mg Tablet 10 mg PO DAILY fluticasone propionate [Flonase Allergy Relief] 50 mcg/actuation [place],Suspension 1 spray INTRANASAL DAILY Centrum Silver Tablet 1 tab PO DAILY Retaine PM 80-20 % Ointment 1 applic EACH EYE BID cholecalciferol (vitamin D3) [Vitamin D3] 50 mcg (2,000 unit) Tablet 50 mcg PO DAILY Soothe Lubricant 0.6-0.6 % Dropperette 1 drp OPHTHALMIC (EYE) QHS zaleplon 5 mg capsule 5 mg PO QHS PRN (Reason: Sleep) amoxicillin-pot clavulanate 875-125 mg tablet 1 tab PO Q12H 10 Days Qty: 20 0RF albuterol sulfate 2.5 mg /3 mL (0.083 %) solution for nebulization 2.5 mg inhalation DAILY budesonide 1 mg/2 mL suspension for nebulization 1 mg inhalation DAILY polyethylene glycol 3350 [Miralax] 17 gram/dose powder 17 g PO DAILY PRN (Reason: constipation) mirtazapine 7.5 mg tablet 7.5 mg PO QHS Patient Comments: [NO ORIGINAL SIG] levothyroxine 137 mcg tablet 137 mcg PO DAILY VITAMIN B12 1,000 mcg IM Q30D Referrals / Follow Up: Chriss Knutson MD [Primary Care Provider] - Disposition Disposition (needs filled in before D/C Order can be placed): Home, Self Care
--- NOTE | 2024-12-20 10:32 | PCM.OPRPT ---
Problems Associated Problem List Diagnoses (1) Sebaceous cyst: Operative Report (Standard) Operative Information Date of Procedure: 12/20/24 Pre-Operative Diagnosis: Cyst right cheek Post-Operative Diagnosis: Same Surgery/Procedure Performed: Excision cyst right cheek (2.8 cm) with intermediate closure painter interior finish: Yes Paper Production Engineer: Mounika Cornejo Tasks completed by first officer and flight instructor: Retracting Type of Anesthesia: General RN Documented Start/Stop Times: Operation Date: 12/20/24 09:50 Case Time Into Pre-Op 12/20/24 07:46 Out of Pre-Op 12/20/24 09:38 Anesthesia Start 12/20/24 09:41 Into Room 12/20/24 09:41 Procedure Start 12/20/24 10:07 Procedure End 12/20/24 10:26 Procedure Start Time: 09:41 Procedure Stop Time: 10:07 Select all DRAINS/GRAFTS/IMPLANTS that apply: None Estimated Blood Loss: Minimal Specimen collected: Yes Description of specimen(s) removed: Cyst right cheek Description of surgery: The patient presents for excision of the residual cyst of the right cheek. The patient presented several months ago with a abscess which was drained. He still has a sinus tract to the skin which occasionally drains. He presents for excision of the residual cyst. The patient is brought to the operating room and placed on the operating room table in the supine position. Care is taken to pad all pressure points, apply sequential compression stockings, and a warming blanket. The right face is prepped and draped in the usual sterile fashion. We initially began with making an elliptical incision over the previous stab incision and sinus tract. Dissection carried down through the to the subcutaneous tissue. The tissue is noted to be friable but without evidence infection. The tissue is then removed down to underlying fascia and passed off the operative field to be sent to pathology. Hemostasis is controlled with cautery. The wound is then closed in layers using a Monocryl suture in the subcutaneous tissue and dermis. Skin edges were approximated with a running Prolene suture. Antibiotic ointment is applied to the site. He tolerated the procedure well was taken to the recovery area in an awake and stable condition. Needle and sponge counts are correct. Surgical Findings: As above Complications Complications: No Admit VTE Documentation VTE Mechan Device Prophylaxis: SCD's
--- NOTE | 2024-12-20 10:47 | PCM.POST.ANE ---
Anesthesia: Postop Eval I Current Vital Signs Temperature: 98.3 F Pulse Rate: 76 Blood Pressure: 139/79 Respiratory Rate: 20 Pulse Ox: 95 Assessment Airway patent: Yes Spontaneous unlabored respirations: Yes nausea: No Vomiting: No Anesthesia Complication: No Fluid Hydration Crystalloid volume administer (ml): 1,100 Total IV fluid infused: 1,100 Progress Note Anesthesia document: Postop Eval 1 completed: Yes
--- NOTE | 2024-12-20 11:59 | POSTOPAN2_ITS ---
Anesthesia Postop Eval I Sum Postop Eval Completion status Anesthesia document: Postop Eval 1 completed: Yes Anesthesia Postop Eval I Summary Anesthesia Postop Eval I Summary: Anesthesia Postop Eval I: Assessment Summary Airway patent Yes 12/20/24 10:47 REFRACTORY FURNACE DESIGNER.CSIR Spontaneous unlabored Yes 12/20/24 10:47 REFRACTORY FURNACE DESIGNER.CSIR respirations Mental status nausea No 12/20/24 10:47 REFRACTORY FURNACE DESIGNER.CSIR Vomiting No 12/20/24 10:47 REFRACTORY FURNACE DESIGNER.CSIR Anesthesia Postop Eval I: Fluid Summary Crystalloid volume administer ,100 12/20/24 10:47 REFRACTORY FURNACE DESIGNER.CSIR (ml) Colloids volume administered ( ml) Blood Product volume administered (ml) Total IV fluid infused 100 12/20/24 10:47 REFRACTORY FURNACE DESIGNER.CSIR Anesthesia Postop Eval I: Summary Notes Anesthesia Complication No 12/20/24 10:47 REFRACTORY FURNACE DESIGNER.CSIR Anesthesia Complication Comment: Post-operative progress note Anesthesia: Postop Eval II Evaluation Mental status: Awake and Calm Pain Level: 0 nausea: No Vomiting: No
--- NOTE | 2024-12-20 11:59 | PCM.POSTANE2 ---
Anesthesia Postop Eval I Sum Postop Eval Completion status Anesthesia document: Postop Eval 1 completed: Yes Anesthesia Postop Eval I Summary Anesthesia Postop Eval I Summary: Anesthesia Postop Eval I: Assessment Summary Airway patent Yes 12/20/24 10:47 SEATING AND MOBILITY TECHNOLOGIST.CSIR Spontaneous unlabored Yes 12/20/24 10:47 SEATING AND MOBILITY TECHNOLOGIST.CSIR respirations Mental status nausea No 12/20/24 10:47 SEATING AND MOBILITY TECHNOLOGIST.CSIR Vomiting No 12/20/24 10:47 SEATING AND MOBILITY TECHNOLOGIST.CSIR Anesthesia Postop Eval I: Fluid Summary Crystalloid volume administer ,100 12/20/24 10:47 SEATING AND MOBILITY TECHNOLOGIST.CSIR (ml) Colloids volume administered ( ml) Blood Product volume administered (ml) Total IV fluid infused 100 12/20/24 10:47 SEATING AND MOBILITY TECHNOLOGIST.CSIR Anesthesia Postop Eval I: Summary Notes Anesthesia Complication No 12/20/24 10:47 SEATING AND MOBILITY TECHNOLOGIST.CSIR Anesthesia Complication Comment: Post-operative progress note Anesthesia: Postop Eval II Evaluation Mental status: Awake and Calm Pain Level: 0 nausea: No Vomiting: No
== END 2024-12-20 11:38 | disposition home or self-care (01) ==
LOC: SDC 07:44 → AC 07:45
PROVIDERS: PCP Family Medicine; Referring Provider Plastic Surgery; Visit Provider Plastic Surgery
PROC: (CPT 11443; principal; 2024-12-20 09:40)
DX: L72.3 Sebaceous cyst (principal); L57.8 Other skin changes due to chronic exposure to nonionizing radiation; G47.33 Obstructive sleep apnea (adult) (pediatric); I10 Essential (primary) hypertension; K21.9 Gastro-esophageal reflux disease without esophagitis; F32.A Depression, unspecified; L08.89 Other specified local infections of the skin and subcutaneous tissue; Z79.51 Long term (current) use of inhaled steroids; Z79.899 Other long term (current) drug therapy
CPT/HCPCS: 11443; 12052; 00300; 88304; J2405

== ENCOUNTER → 2025-01-13 | Outpatient (CLI) | payer MEDICARE, BC, SELFPAY | END | disposition home or self-care (01) | LOC: LABSPEC 10:40 | PROVIDERS: PCP Family Medicine; Referring Provider Dermatology; Visit Provider Dermatology | DX: Z09 Encounter for follow-up examination after completed treatment for conditions other than malignant neoplasm (principal); Z87.2 Personal history of diseases of the skin and subcutaneous tissue; L02.211 Cutaneous abscess of abdominal wall; L82.0 Inflamed seborrheic keratosis; L29.89 Other pruritus; L70.2 Acne varioliformis; L30.4 Erythema intertrigo; D22.5 Melanocytic nevi of trunk; L82.1 Other seborrheic keratosis; L57.8 Other skin changes due to chronic exposure to nonionizing radiation; Z71.89 Other specified counseling | CPT/HCPCS: 87070; 87205 ==

== ENCOUNTER → 2025-01-24 | Outpatient (CLI) | payer MEDICARE, BC, SELFPAY ==
[2025-01-24 15:26] LABS: Absolute Lymphocyte Count 1.77 X10^3/uL (0.83-4.51); Absolute Neutrophil Count 3.8 X10^3/uL (2.0-7.7); Basophil# 0.03 X10^3/uL; Basophil% 0.5 % (0-1); Eosinophil# 0.09 X10^3/uL; Eosinophils% 1.4 % (0-5); Hemoglobin 13.2 g/dL (13.0-16.5); Lymphocyte # 1.77 X10^3/ul (0.83-4.51); Lymphocyte % 28.1 % (19-41); Mean Corp Hgb Conc 32.2 g/dL (32-36); Mean Corpuscular Hgb 31.9 pg (27.0-32.0); Mean Platelet Vol. 9.7 fl (6.2-12.0); Monocyte% 9.5 % (0-10); NRBC Flagged by Analyzer 0 % (0-5); Neutrophil # 3.79 X10^3/uL (2.7-7.7); Platelet Count 233 K/mm3 (150-450); RBC Distribution Width CV 13.6 % (11.6-14.6); RBC Distribution Width SD 49.8 fl (35.1-43.9); Red Blood Count 4.14 M/mm3 (4.6-6.2); White Blood Count 6.3 K/mm3 (4.4-11.0)
[2025-01-24 16:39] LABS: ALB/GLOB Ratio 1.6 RATIO (0.9-2.4); AST(SGOT) 29 U/L (<=37); Alanine Aminotransfer ALT/SGPT 36 U/L (<=46); Alkaline Phosphatase 81 U/L (40-129); Anion Gap 14 (5-15); BUN 18 mg/dL (4-19); BUN/Creat Ratio 15.9 RATIO (10-20); Calcium,Total 9.7 mg/dL (7.6-11.0); Carbon Dioxide 20.6 mmol/L (21.0-32.0); Chloride 107 mmol/L (98-108); Creatinine, Serum 1.14 mg/dL (0.70-1.20); EST Glomerular Filtration Rate 64 (>60); Globulin 2.6 g/dL (2.2-4.2); Glucose 83 mg/dL (70-99); Potassium 4.4 mmol/L (3.3-5.1); Protein, Total 6.6 g/dL (5.9-8.4); Sodium Level 141 mmol/L (133-145); Total Bilirubin 0.53 mg/dL (0.00-1.30)
== END | disposition home or self-care (01) ==
LOC: MTLAB 11:43
PROVIDERS: PCP Family Medicine
DX: N40.1 Benign prostatic hyperplasia with lower urinary tract symptoms (principal); R53.83 Other fatigue
CPT/HCPCS: 36415; 80053; 85025

== ENCOUNTER → 2025-03-19 | Outpatient (CLI) | payer MEDICARE, BC, SELFPAY ==
[2025-03-19 18:02] LABS: Absolute Lymphocyte Count 1.45 X10^3/uL (0.83-4.51); Absolute Neutrophil Count 4.1 X10^3/uL (2.0-7.7); Basophil# 0.04 X10^3/uL; Basophil% 0.6 % (0-1); Eosinophil# 0.08 X10^3/uL; Eosinophils% 1.3 % (0-5); Hematocrit 42.7 % (40-54); Hemoglobin 14.2 g/dL (13.0-16.5); Lymphocyte # 1.45 X10^3/ul (0.83-4.51); Lymphocyte % 23.5 % (19-41); Mean Corp Hgb Conc 33.3 g/dL (32-36); Mean Corpuscular Hgb 33.2 pg (27.0-32.0); Mean Corpuscular Volume 99.8 fL (80-94); Mean Platelet Vol. 9.9 fl (6.2-12.0); Monocyte# 0.41 X10^3/uL; Monocyte% 6.7 % (0-10); NRBC Flagged by Analyzer 0 % (0-5); Neutrophil # 4.14 X10^3/uL (2.7-7.7); Neutrophil % 67.3 % (47-70); Platelet Count 197 K/mm3 (150-450); RBC Distribution Width CV 13.9 % (11.6-14.6); RBC Distribution Width SD 50.9 fl (35.1-43.9); Red Blood Count 4.28 M/mm3 (4.6-6.2); White Blood Count 6.2 K/mm3 (4.4-11.0)
[2025-03-20 11:41] LABS: Hemoglobin A1c 6.3 % (<=5.6)
[2025-03-20 12:05] LABS: ALB/GLOB Ratio 1.5 RATIO (0.9-2.4); AST(SGOT) 26 U/L (<=37); Alanine Aminotransfer ALT/SGPT 48 U/L (<=46); Albumin, Serum 4.1 g/dL (3.4-4.8); Alkaline Phosphatase 89 U/L (40-129); Anion Gap 13 (5-15); BUN 20 mg/dL (4-19); BUN/Creat Ratio 15.8 RATIO (10-20); Calcium,Total 9.4 mg/dL (7.6-11.0); Chloride 107 mmol/L (98-108); Cholesterol 179 mg/dL (<=200); Creatinine, Serum 1.25 mg/dL (0.70-1.20); EST Glomerular Filtration Rate 57 (>60); Globulin 2.7 g/dL (2.2-4.2); Glucose 140 mg/dL (70-99); High Density Lipoprotein 43 mg/dL; Low Density Lipoprotein Calc. 64 mg/dL; Potassium 3.8 mmol/L (3.3-5.1); Protein, Total 6.8 g/dL (5.9-8.4); Sodium Level 142 mmol/L (133-145); Total Bilirubin 0.62 mg/dL (0.00-1.30); Triglycerides 356 mg/dL; Uric Acid 6.1 mg/dL (3.5-7.2); Very Low Density Lipoprotein 71 mg/dL (5-40); Vitamin D,25 Hydroxy 59.6 ng/mL (30-100); cholesterol:hdl ratio screen 4.12
== END | disposition home or self-care (01) ==
LOC: MFPLAB 15:01
PROVIDERS: PCP Family Medicine; Referring Provider Family Medicine; Visit Provider Family Medicine
DX: R73.02 Impaired glucose tolerance (oral) (principal); M10.9 Gout, unspecified; E78.5 Hyperlipidemia, unspecified; E55.9 Vitamin D deficiency, unspecified
CPT/HCPCS: 36415; 80053; 80061; 82306; 83036; 84550; 85025

== ENCOUNTER → 2025-05-14 | Outpatient (CLI) | payer MEDICARE, BC, SELFPAY ==
[2025-05-14 17:49] LABS: Hematocrit 41.1 % (40-54); Hemoglobin 13.6 g/dL (13.0-16.5); Immature Granulocytes Count 0.020 X10^3/uL (0.0-0.0); Mean Corp Hgb Conc 33.1 g/dL (32-36); Mean Corpuscular Volume 100.5 fL (80-94); Mean Platelet Vol. 9.6 fl (6.2-12.0); NRBC Flagged by Analyzer 0 % (0-5); Platelet Count 188 K/mm3 (150-450); RBC Distribution Width CV 14.0 % (11.6-14.6); RBC Distribution Width SD 51.7 fl (35.1-43.9); Red Blood Count 4.09 M/mm3 (4.6-6.2); White Blood Count 6.4 K/mm3 (4.4-11.0)
[2025-05-14 18:56] LABS: Magnesium 1.7 mg/dL (1.5-2.2)
[2025-05-14 19:04] LABS: AST(SGOT) 20 U/L (<=37); Alanine Aminotransfer ALT/SGPT 28 U/L (<=46); Albumin, Serum 3.9 g/dL (3.4-4.8); Alkaline Phosphatase 77 U/L (40-129); Anion Gap 13 (5-15); BUN 19 mg/dL (4-19); BUN/Creat Ratio 16.1 RATIO (10-20); Calcium,Total 9.2 mg/dL (7.6-11.0); Carbon Dioxide 22.3 mmol/L (21.0-32.0); Chloride 106 mmol/L (98-108); Globulin 2.7 g/dL (2.2-4.2); Glucose 83 mg/dL (70-99); Potassium 3.8 mmol/L (3.3-5.1)
== END | disposition home or self-care (01) ==
LOC: MFPLAB 16:54
PROVIDERS: PCP Family Medicine; Visit Provider Nurse Practitioner Family
DX: R19.7 Diarrhea, unspecified (principal)
CPT/HCPCS: 36415; 80053; 83735; 85025

== ENCOUNTER → 2025-07-23 | Outpatient (CLI) | payer MEDICARE, BC, SELFPAY ==
--- NOTE | 2025-07-23 13:34 | RAD_ITS ---
EXAM: XR Abdomen, 1 View and XR Chest, 1 View CLINICAL INDICATION: CONSTIPATION TECHNIQUE: Frontal view of the chest and abdomen/pelvis. COMPARISON: No relevant prior studies available. FINDINGS: LUNGS AND PLEURAL SPACES: Unremarkable. No consolidation. No pneumothorax. HEART: Unremarkable. No cardiomegaly. MEDIASTINUM: Unremarkable. Normal mediastinal contour. INTRAPERITONEAL SPACE: No free air. GASTROINTESTINAL TRACT: Fecal retention in the colon consistent with constipation. No dilation. BONES/JOINTS: Unremarkable. No acute fracture. RAD/Acute Abdomen Inc Chest IMPRESSION: Fecal retention in the colon consistent with constipation. Reading Location: [id number]
--- NOTE | 2025-07-23 13:34 | RAD_ITS ---
EXAM: XR Abdomen, 1 View and XR Chest, 1 View CLINICAL INDICATION: CONSTIPATION TECHNIQUE: Frontal view of the chest and abdomen/pelvis. COMPARISON: No relevant prior studies available. FINDINGS: LUNGS AND PLEURAL SPACES: Unremarkable. No consolidation. No pneumothorax. HEART: Unremarkable. No cardiomegaly. MEDIASTINUM: Unremarkable. Normal mediastinal contour. INTRAPERITONEAL SPACE: No free air. GASTROINTESTINAL TRACT: Fecal retention in the colon consistent with constipation. No dilation. BONES/JOINTS: Unremarkable. No acute fracture. RAD/Acute Abdomen Inc Chest IMPRESSION: Fecal retention in the colon consistent with constipation. Reading Location: [id number]
[2025-07-23 15:21] LABS: Hematocrit 42.2 % (40-54); Hemoglobin 14.1 g/dL (13.0-16.5); Immature Granulocytes Count 0.030 X10^3/uL (0.0-0.0); Mean Corp Hgb Conc 33.4 g/dL (32-36); Mean Corpuscular Volume 99.3 fL (80-94); Mean Platelet Vol. 10.7 fl (6.2-12.0); NRBC Flagged by Analyzer 0 % (0-5); Platelet Count 179 K/mm3 (150-450); RBC Distribution Width CV 13.6 % (11.6-14.6); RBC Distribution Width SD 49.8 fl (35.1-43.9); Red Blood Count 4.25 M/mm3 (4.6-6.2); White Blood Count 6.2 K/mm3 (4.4-11.0)
[2025-07-23 16:23] LABS: AST(SGOT) 39 U/L (<=37); Alanine Aminotransfer ALT/SGPT 52 U/L (<=46); Albumin, Serum 4.3 g/dL (3.4-4.8); Alkaline Phosphatase 73 U/L (40-129); Anion Gap 11 (5-15); BUN 18 mg/dL (4-19); BUN/Creat Ratio 15.2 RATIO (10-20); Calcium,Total 9.5 mg/dL (7.6-11.0); Carbon Dioxide 25.3 mmol/L (21.0-32.0); Chloride 106 mmol/L (98-108); Cholesterol 179 mg/dL (<=200); Globulin 2.7 g/dL (2.2-4.2); Glucose 95 mg/dL (70-99); Low Density Lipoprotein Calc. 94 mg/dL; Potassium 4.2 mmol/L (3.3-5.1); Triglycerides 186 mg/dL; Uric Acid 5.7 mg/dL (3.5-7.2); Very Low Density Lipoprotein 37 mg/dL (5-40); Vitamin D,25 Hydroxy 57.8 ng/mL (30-100); cholesterol:hdl ratio screen 3.71
== END | disposition home or self-care (01) ==
LOC: MTLAB 13:34
PROVIDERS: PCP Family Medicine; Referring Provider Family Medicine; Visit Provider Family Medicine
DX: R73.02 Impaired glucose tolerance (oral) (principal); K59.00 Constipation, unspecified; E55.9 Vitamin D deficiency, unspecified; E78.5 Hyperlipidemia, unspecified
CPT/HCPCS: 36415; 74022; 80053; 80061; 82306; 83036; 84550; 85025